=== PATIENT | male | born 1985 | race Caucasian/White ===

== ENCOUNTER 2024-08-07 21:55 | Inpatient (IN) | payer MEDICAID, OTHER, SELFPAY ==
--- NOTE | 2024-08-07 | ECG_ITS ---
Test Reason : SUBSTANCE ABUSE Blood Pressure : / mmHG Vent. Rate : 073 BPM Atrial Rate : 073 BPM P-R Int : 156 ms QRS Dur : 090 ms QT Int : 422 ms P-R-T Axes : 048 042 012 degrees QTc Int : 464 ms Normal sinus rhythm Minimal voltage criteria for LVH, may be normal variant ( Sokolow-Navarrete ) Nonspecific T wave abnormality Prolonged QT Abnormal ECG When compared with ECG of 08-MAY-2020 14:20, T wave inversion now evident in Inferior leads Nonspecific T wave abnormality now evident in Anterolateral leads QT has lengthened Referred By: Generic ED Physician Electronically Signed By:PEDRITO CONNOR MD
--- NOTE | ~2024-08-07 | CT_ITS ---
EXAMINATION: CT HEAD WITHOUT CONTRAST CT CERVICAL SPINE WITHOUT CONTRAST CLINICAL INFORMATION: Fall. COMPARISON: CT head and cervical spine from 05/22/2020. TECHNIQUE: Contiguous axial imaging was performed from the skull base to vertex without intravenous administration of contrast. Contiguous axial imaging was performed from the upper chest through the skull base without intravenous administration of contrast. Coronal and sagittal reformats were obtained at the acquisition workstation. This CT examination was performed using dose optimization techniques as appropriate, variously including the following: *Automated exposure control. *Adjustment of mA and/or kV according to patient size (this includes techniques or standardized protocols for targeted exams where dose is matched to indication/reason for exam; i.e. extremities or head). *Use of iterative reconstruction technique. DLP: 1173 mGy-cm FINDINGS: Head: There is no evidence of acute intracranial hemorrhage or edematous territorial infarction. Hobbs-white matter differentiation is preserved. Nonspecific scattered and partially confluent hypoattenuation in the periventricular and deep white matter. The ventricles are normal in morphology and size. No evidence for obstructive hydrocephalus. No abnormal mass effect or midline shift. No extra-axial fluid collections. No acute soft tissue or osseous abnormalities. The mastoid air cells and visualized paranasal sinuses are clear. Cervical Spine: The atlantooccipital and atlantoaxial articulations remain well aligned. Straightening of the normal cervical lordosis. Otherwise, there is anatomic alignment of the vertebral bodies and posterior elements. No evidence of acute fracture or subluxation. The vertebral body heights and disc spaces are maintained. There is no prevertebral soft tissue swelling. The thyroid gland and remaining cervical soft tissues are within normal limits. The lung apices demonstrate no abnormalities. CT/CT cervical spine wo IV con IMPRESSION: 1. No evidence of acute intracranial hemorrhage or edematous territorial infarction. 2. Mild to moderate nonspecific white matter changes. 3. No evidence of acute fracture or traumatic subluxation of the cervical spine. Electronically signed by: Zana De Leon DO 08/08/2024 12:25 AM EDT
[2024-08-07 22:16] VITALS: BP 121/64; BP 124/72; PULSE 81; PULSE 84; RESP 16; TEMP 37.3; O2SAT 96; O2SAT 99; BMI 21.0
--- NOTE | 2024-08-07 22:33 | PC.NURSE ---
MD Albarran made aware of possible headstrike/loc. no lacs/redness/hematoma noted of head. pt reports mild headache. head/neck ct scan entered per MD. pt states depressed/has thought of SI without plan, agreeable to see care team. labs urine ekg ordered. pt changed over to hospital attire belongings locked. crack pipe found by security on pt and discarded. pt is calm/cooperative. charge nurse aware need for 1:[address] scan at this time.
--- OUTSIDE RECORDS SUMMARY | 2024-08-07 22:41 | XMS_ITS | Continuity of Care Document ---
Author Organization [facility] Address [address] [place] [address]- Care Team Providers Care Packaging Tech Name Role Phone Amor PAREDES, Shin Johnston Primary Care Physician Encounter [facility] Date(s): 05/16/20 - 05/18/20 [facility] [address] [place] [address]- [facility] Discharge Disposition: A-D/C Home Attending Physician: Raina Tapia MD Admitting Physician: Avril Faulkner MD Referring Physician: Not on Staff, Referring MD Allergies, Adverse Reactions, Alerts Substance Reaction Severity Status NKA Active Medications No Known Medications Problem List Condition Effective Dates Status Health Status Inform ant Anxiety(Confirmed) Active Depression(Confirmed) Active Hepatitis C(Confirmed) Active Polysubstance abuse(Confirmed) Active PTSD - Post-traumatic stress disorder(Confirmed) Active Vital Signs Most recent to oldest [Reference Range]: 1 2 3 Height 165.1 cm (05/18/20 8:22 AM) 165.1 cm (05/17/20 9:54 PM) 165.1 cm (05/17/20 9:30 AM) Weight 60.9 kg (05/16/20 1:13 AM) Oxygen Saturation [94-100 %] 100 % (05/18/20 8:22 AM) 100 % (05/17/20 9:54 PM) 100 % (05/16/20 9:40 PM) Pulse Rate [55-90 bpm] 102 bpm *H* (05/18/20 8:22 AM) 118 bpm *H* (05/17/20 9:54 PM) 71 bpm (05/17/20 9:30 AM) Body Mass Index [18.5-24.99] 22.34 (05/16/20 1:13 AM) Blood Pressure [90-138/55-84 mm Hg] 108/74mm Hg (05/18/20 8:22 AM) 88/52mm Hg *L* (05/17/20 9:54 PM) 123/72mm Hg (05/17/20 9:30 AM) Respiratory Rate [16-30 br/min] 18 br/min (05/18/20 9:25 AM) 18 br/min (05/18/20 8:29 AM) 18 br/min (05/18/20 8:24 AM) Temperature [96.8-100.4 DegF] 98.4 DegF (05/18/20 8:22 AM) 97.9 DegF (05/17/20 9:54 PM) 97 DegF (05/17/20 9:30 AM) Mode of Delivery (Oxygen) Room air (05/18/20 8:22 AM) Room air (05/17/20 9:54 PM) Room air (05/16/20 9:40 PM) Blood pressure sites Arm, left (05/18/20 8:22 AM) Arm, left (05/17/20 9:54 PM) Arm, right (05/17/20 9:30 AM) Temperature Route Oral (05/18/20 8:22 AM) Oral (05/17/20 9:54 PM) Oral (05/17/20 9:30 AM) Dry Weight 60.9 kg (05/16/20 1:13 AM) Sensory deficits None (05/16/20 1:13 AM) Mobility assistance Independent (05/16/20 1:13 AM)
--- OUTSIDE RECORDS SUMMARY | 2024-08-07 22:41 | XMS_ITS | Continuity of Care Document ---
Author Organization [facility] Address [address] [place] [address]- Care Team Providers Care Typesetting Supervisor Name Role Phone Amor PAREDES, Shin Johnston Primary Care Physician Encounter [facility] Date(s): 11/29/19 - 11/30/[address] [address] [phone] Discharge Disposition: A-D/C Home Attending Physician: Mihai Romero MD Admitting Physician: Mihai Romero MD Referring Physician: Not on Staff, Referring MD Allergies, Adverse Reactions, Alerts Substance Reaction Severity Status NKA Active Medications Bactrim DS 800 mg-160 mg oral tablet 1 tablet, By Mouth, Every 12 hours, for 10 days, # 20 tablet, 0 Refills, Acute 12/10/19 0:28:00 EST, 11/30/19 0:28:00 EST, Tablet, [id number], 1 tablet By Mouth Every 12 hours,x10 days, 165, cm, 11/29/19 21:38:00 EST, Height, 68.1, kg,... Start Date: 11/30/19 Stop Date: 12/10/19 Status: Ordered Bactrim DS 800 mg-160 mg oral tablet 1 tablet, By Mouth, 2 times a day, for 7 days, # 14 tablet, 0 Refills, Acute 12/07/19 9:20:00 EST, 11/30/19 9:20:00 EST, Tablet, [facility]/pharmacy #[id number], 1 tablet By Mouth 2 times a day,x7 days, 165, cm, 11/29/19 21:38:00 EST, Height, 68.1, kg, 11/29/19 21... Start Date: 11/30/19 Stop Date: 12/07/19 Status: Ordered cephalexin monohydrate 500 mg oral tablet 1 tablet = 500 mg, By Mouth, 4 times a day, for 7 days, # 28 tablet, 0 Refills, Acute 12/07/19 9:20:00 EST, 11/30/19 9:20:00 EST, Tablet, [facility]/pharmacy #[id number], 165, cm, 11/29/19 21:38:00 EST, Height, 68.1, kg, 11/29/19 21:38:00 EST, Dry Weight Start Date: 11/30/19 Stop Date: 12/07/19 Status: Ordered Depakote ER 500 mg oral tablet, extended release 1 tablet = 500 mg, By Mouth, 2 times a day, 0 Refills, Maintenance, 11/29/19 21:42:00 EST Start Date: 11/29/19 Status: Ordered gabapentin 300 mg oral capsule 300 mg, 1, capsule, By Mouth, 2 times a day, Refills 0, Maintenance, 11/29/19 21:41:00 EST Start Date: 11/29/19 Status: Ordered Keflex monohydrate 500 mg oral capsule 1 capsule = 500 mg, By Mouth, 4 times a day, for 10 days, # 40 capsule, 0 Refills, Acute 12/10/19 0:27:00 EST, 11/30/19 0:27:00 EST, Capsule, [id number], 165, cm, 11/29/19 21:38:00 EST, Height, 68.1, kg, 11/29/19 21:38:00 EST, Dry Weight Start Date: 11/30/19 Stop Date: 12/10/19 Status: Ordered Methadone = 80 mg, By Mouth, Daily, 0 Refills, Maintenance, 11/29/19 21:42:00 EST, Partial fill upon patient request Start Date: 11/29/19 Status: Ordered mirtazapine 15 mg oral tablet 1 tablet, By Mouth, Daily at bedtime, # 30 tablet, 0 Refills, Maintenance, 07/14/14 14:10:11, Tablet, 1 tablet By Mouth Daily at bedtime,x30 days Start Date: 07/14/14 Stop Date: 08/13/14 Status: Ordered quetiapine 50 mg oral tablet = 50 mg, By Mouth, Daily at bedtime, # 30 tablet, 0 Refills, Maintenance, 07/14/14 14:07:43, Tablet, 50 mg By Mouth Daily at bedtime,x30 days Start Date: 07/14/14 Stop Date: 08/13/14 Status: Ordered Vital Signs Most recent to oldest [Reference Range]: 1 2 Height 165 cm (11/29/19 9:38 PM) Weight 68.1 kg (11/29/19 9:38 PM) Oxygen Saturation [94-100 %] 98 % (11/30/19 12:35 AM) 98 % (11/29/19 9:38 PM) Pulse Rate [55-90 bpm] 72 bpm (11/30/19 12:35 AM) 80 bpm (11/29/19 9:38 PM) Blood Pressure [90-138/55-84 mm Hg] 96/6 4mm Hg (11/30/19 12:35 AM) 105/69mm Hg (11/29/19 9:38 PM) Respiratory Rate [16-30 br/min] 18 br/mi n (11/30/19 12:35 AM) 20 br/min (11/29/19 9:38 PM) Temperature [96.8-100.4 DegF] 97.7 DegF (11/30/19 12:35 AM) 97.6 DegF (11/29/19 9:38 PM) Mode of Delivery (Oxygen) Room air (11/30/19 12:35 AM) Room air (11/29/19 9:38 PM) Blood pressure sites Arm, right (11/29/19 9:38 PM) Temperature Route Oral (11/30/19 12:35 AM) Oral (11/29/19 9:38 PM) Dry Weight 68.1 kg (11/29/19 9:38 PM) Dry Weight Obtained Via Patient/family s tated (11/29/19 9:38 PM)
--- OUTSIDE RECORDS SUMMARY | 2024-08-07 22:41 | XMS_ITS | Continuity of Care Document ---
Author Organization [facility] ter Address [address] [place] [address]- Care Team Providers Care Accredited Pharmacy Technician Name Role Phone Amor PAREDES, Shin Johnston Primary Care Physician Encounter [facility] Date(s): 02/11/20 - 02/12/[address] [address]- [facility] Encounter Diagnosis Nasal bone fracture(Final) - 02/12/20 Discharge Disposition: A-D/C Home Attending Physician: Ji Helms MD Admitting Physician: Ji Helms MD Referring Physician: Not on Staff, Referring MD Allergies, Adverse Reactions, Alerts Substance Reaction Severity Status NKA Active Medications acetaminophen 325 mg oral tablet 650 mg, 2, tablet, By Mouth, Every 6 hours, PRN, # 50 tablet, Refills 0, Tot. Refills 0, Maintenance, as needed for pain, 02/12/20 9:56:00 EDT, Route to Pharmacy Electronically, [facility]/pharmacy #[id number], 165, cm, 11/29/19 21:38:00 EST, Height, 68.1, kg, ... Start Date: 02/12/20 Status: Ordered Depakote ER 500 mg oral tablet, extended release 1 tablet = 500 mg, By Mouth, 2 times a day, 0 Refills, Maintenance, 11/29/19 21:42:00 EST Start Date: 11/29/19 Status: Ordered gabapentin 300 mg oral capsule 300 mg, 1, capsule, By Mouth, 2 times a day, Refills 0, Maintenance, 11/29/19 21:41:00 EST Start Date: 11/29/19 Status: Ordered ibuprofen 400 mg oral tablet 400 mg, 1, tablet, By Mouth, Every 6 hours, PRN, # 50 tablet, Refills 0, Tot. Refills 0, Maintenance, as needed for pain, 02/12/20 9:56:00 EDT, Route to Pharmacy Electronically, [facility]/pharmacy #[id number], 165, cm, 11/29/19 21:38:00 EST, Height, 68.1, kg, ... Start Date: 02/12/20 Status: Ordered Methadone = 80 mg, By [...] to oldest [Reference Range]: 1 2 3 Oxygen Saturation [94-100 %] 98 % (02/12/20 10:28 AM) 100 % (02/12/20 5:59 AM) 96 % (02/11/20 10:59 PM) Pulse Rate [55-90 bpm] 71 bpm (02/12/20 10:28 AM) 58 bpm (02/12/20 5:59 AM) 70 bpm (02/11/20 10:59 PM) Blood Pressure [90-138/55-84 mm Hg] 102/60mm Hg (02/12/20 10:28 AM) 97/55mm Hg (02/12/20 5:59 AM) 114/65mm Hg (02/11/20 10:59 PM) Respiratory Rate [16-30 br/min] 18 br/min (02/12/20 10:28 AM) 18 br/min (02/12/20 9:17 AM) 18 br/min (02/12/20 5:59 AM) Temperature [96.8-100.4 DegF] 98.0 DegF (02/12/20 10:28 AM) 97.3 DegF (02/12/20 5:59 AM) 97.9 DegF (02/11/20 10:59 PM) Liters per Minute 0 L/min (02/12/20 5:59 AM) Mode of Delivery (Oxygen) Room air (02/12/20 10:28 AM) Room air (02/12/20 5:59 AM) Room air (02/11/20 10:59 PM) Blood pressure sites Arm, right (02/12/20 10:28 AM) Arm, left (02/12/20 5:59 AM) Temperature Route Oral (02/12/20 10:28 AM) Oral (02/12/20 5:59 AM) Oral (02/11/20 10:59 PM)
--- OUTSIDE RECORDS SUMMARY | 2024-08-07 22:41 | XMS_ITS | Continuity of Care Document ---
Author Organization [facility] ter Address [address] [place] [address]- Care Team Providers Care Appraisal Coordinator Name Role Phone Amor PAREDES, Shin Johnston Primary Care Physician Encounter [facility] [place] Date(s): 10/06/21 - 10/06/[address] [address] Discharge Disposition: A-D/C Home Attending Physician: Ralph Nava DDS, MD Admitting Physician: Ralph Nava DDS, MD Referring Physician: Ralph Nava DDS, MD Allergies, Adverse Reactions, Alerts Substance Reaction Severity Status NKA Active Medications acetaminophen-oxycodone 325 mg-10 mg oral tablet 1 tablet, By Mouth, Every 6 hours, PRN Pain , Mild, for 3 days, if patient can tolerate po, # 12 tablet, 0 Refills, Acute 10/09/21 17:20:00 EST, 10/06/21 17:20:00 EST, Tablet, Partial fill upon patient request if the prescription is for a schedule II... Start Date: 10/06/21 Stop Date: 10/09/21 Status: Ordered Bactrim DS 800 mg-160 mg oral tablet 1 tablet, By Mouth, 2 times a day, # 14 tablet, 0 Refills, Maintenance, 10/06/21 15:11:00 EST, Tablet, Partial fill upon patient request if the prescription is for a schedule II opioid drug. Start Date: 10/06/21 Stop Date: 10/13/21 Status: Ordered benztropine 1 mg oral tablet 1 mg, 1, tablet, By Mouth, Daily at bedtime, Refills 0, Maintenance, 10/01/21 16:41:00 EST, Partialfill upon patient request if the prescription is for a schedule II opioid drug. Start Date: 10/01/21 Status: Ordered buPROPion 75 mg oral tablet 1 tablet = 75 mg, By Mouth, 2 times a day, # 270 tablet, 0 Refills, Maintenance, 10/01/21 16:42:00 EST, Tablet, Partial fill upon patient request if the prescription is for a schedule II opioid drug. Start Date: 10/01/21 Status: Ordered chlorhexidine topical 0.12% liquid 15 mL = 0.018 Gm, Swish and Spit, 3 times a day after meals and bedtime, # 420 mL, 1 Refills, Maintenance, 10/06/21 17:20:00 EST, Oral Rinse, [facility]/pharmacy #[id number], Partial fill upon patient request if the prescription is for a schedule II opioid drug.,... Start Date: 10/06/21 Stop Date: 10/20/21 Status: Ordered haloperidol 2 mg oral tablet 2 mg, 1, tablet, By Mouth, Daily in AM, Refills 0, Maintenance, 10/01/21 16:42:00 EST, Partial fillupon patient request if the prescription is for a schedule II opioid drug. Start Date: 10/01/21 Status: Ordered haloperidol 5 mg oral tablet 5 mg, 1, tablet, By Mouth, Daily at bedtime, Refills 0, Maintenance, 10/01/21 16:43:00 EST, Partialfill upon patient request if the prescription is for a schedule II opioid drug. Start Date: 10/01/21 Status: Ordered hydrOXYzine hydrochloride 25 mg oral tablet 1 tablet = 25 mg, By Mouth, Daily in AM, 0 Refills, Maintenance, 10/01/21 16:43:00 EST, Partial fill upon patient request if the prescription is for a schedule II opioid drug. Start Date: 10/01/21 Status: Ordered hydrOXYzine hydrochloride 25 mg oral tablet 3 tablets, By Mouth, Daily at bedtime, 0 Refills, Maintenance, 10/01/21 16:43:00 EST, Partial fill upon patient request if the prescription is for a schedule II opioid drug. Start Date: 10/01/21 Status: Ordered ibuprofen 800 mg oral tablet 800 mg, 1, tablet, By Mouth, 3 times a day, PRN, for 5 days, # 15 tablet, Refills 1, Tot. Refills 1, Acute 10/16/21 17:19:00 EST, for pain, 10/06/21 17:19:00 EST, Route to Pharmacy Electronically, [facility]/pharmacy #[id number], Partial fill upon patient request... Start Date: 10/06/21 Stop Date: 10/16/21 Status: Ordered Methadone Liquid = 85 mg, By Mouth, Daily in AM, 0 Refills, Maintenance, 10/01/21 16:44:00 EST, Solution, Partial fill upon patient request if the prescription is for a schedule II opioid drug. Start Date: 10/01/21 Status: Ordered Narcan 4 mg/0.1 mL nasal spray = 4 mg, Naris, Left, Once, 0 Refills, Maintenance, 10/01/21 16:47:00 EST, Partial fill upon patientrequest if the prescription is for a schedule II opioid drug. Start Date: 10/01/21 Status: Ordered Tylenol Caplet Extra Strength = 500 mg, By Mouth, Every 6 hours, PRN Pain , Moderate, 0 Refills, Maintenance, 10/01/21 16:45:00 EST, Partial fill upon patient request if the prescription is for a schedule II opioid drug. Start Date: 10/01/21 Status: Ordered Problem List Condition Effective Dates Status Health Status Inform ant Anxiety(Confirmed) Active Depression(Confirmed) Active Hepatitis C(Confirmed) Active Polysubstance abuse(Confirmed) Active PTSD - Post-traumatic stress disorder(Confirmed) Active Vital Signs Most recent to oldest [Reference Range]: 1 2 3 Height 167.64 cm (10/06/21 2:47 PM) 167.64 cm (10/01/21 4:39 PM) Weight 72.27 kg (10/06/21 2:47 PM) 72.27 kg (10/01/21 4:39 PM) Oxygen Saturation [94-100 %] 97 % (10/06/21 6:34 PM) 97 % (10/06/21 6:30 PM) 96 % (10/06/21 6:19 PM) Pulse Rate [55-90 bpm] 85 bpm (10/06/21 2:47 PM) Body Mass Index [18.5-24.99] 25.72 *H* (10/06/21 2:47 PM) 25.72 *H* (10/01/21 4:39 PM) Blood Pressure [90-138/55-84 mm Hg] 123/81mm Hg (10/06/21 6:34 PM) 111/77mm Hg (10/06/21 6:19 PM) 112/66mm Hg (10/06/21 6:07 PM) Respiratory Rate [16-30 br/min] 15 br/min *L* (10/06/21 6:34 PM) 15 br/min *L* (10/06/21 6:30 PM) 15 br/min *L* (10/06/21 6:19 PM) Temperature [96.8-100.4 DegF] 97.2 DegF (10/06/21 6:30 PM) 98 DegF (10/06/21 5:15 PM) 98.8 DegF (10/06/21 2:47 PM) Liters per Minute 5 L/min (10/06/21 5:30 PM) 7 L/min (10/06/21 5:15 PM) Mode of Delivery (Oxygen) Room air (10/06/21 7:30 PM) Room air (10/06/21 6:30 PM) Room air (10/06/21 6:15 PM) Blood pressure sites Arm, left (10/06/21 5:15 PM) Arm, right (10/06/21 2:47 PM) Temperature Route Temporal (10/06/21 6:30 PM) Temporal (10/06/21 5:15 PM) Temporal (10/06/21 2:47 PM) Dry Weight 70.1 kg (10/06/21 2:47 PM) 72.27 kg (10/01/21 4:39 PM) Weight Obtained Via Patient/family state d (10/01/21 4:39 PM) Dry Weight Obtained Via Standing scale (10/06/21 2:47 PM) Patient/family stated (10/01/21 4:39 PM)
[2024-08-07 23:04] LABS: Basophils Percent Auto 0.4 % (0-2); Eosinophils Absolute Auto 0.2 X10*3/uL (0.0-0.4); Eosinophils Percent Auto 1.9 % (0-4); Hematocrit 32.6 % (42.0-52.0); Hemoglobin 11.3 g/dl (14.0-18.0); Imm Gran Abs Auto 0.01 X10*3/uL (0.00-0.03); Imm Gran Pct Auto 0.1 % (0.0-0.4); Lymphocytes Absolute Auto 2.1 X10*3/uL (1.2-4.9); Lymphocytes Percent Auto 26.9 % (20-40); MANUAL DIFF FLAG NO; Mean Corpuscular HGB Conc 34.7 g/dl (31.0-36.0); Mean Corpuscular Hemoglobin 28.9 pg (27.0-33.0); Mean Corpuscular Volume 83.4 fL (80.0-98.0); Mean Platelet Volume 9.9 fL (9.4-12.4); Monocytes Absolute Auto 0.7 X10*3/uL (0.1-1.2); Monocytes Percent Auto 8.4 % (2-11); Neutrophils Percent Auto 62.3 % (45-73); Platelet Count 212 X10*3/uL (160-400); Red Blood Count 3.91 X10*6/uL (4.60-5.80); Red Cell Distribution Width 13.2 % (11.0-16.0)
--- NOTE | 2024-08-07 23:06 | ED_ITS ---
HPI - Fall General Chief Complaint: Fall Stated Complaint: fell Head strike, LOC +c collar Time Seen by Provider: 08/07/24 22:59 Source: patient and EMS Mode of arrival: EMS Limitations: no limitations History of Present Illness ED Provider: Dr. Dee Moran HPI Narrative: Patient comes to the emergency room via ambulance. Patient was found in a bag [place] [address], slumped over. Patient states that he fell over and hit his head, patient believes he did lose consciousness. Patient admits that he has been drinking multiple nips per day. Patient states that he has been very depressed, no HI. Patient states that he also injects IV drugs especially in the neck area. Patient states that he has seriously been considering killing himself, a specific plan, patient states he has had this thoughts in the past. Related Data Allergies Allergy/AdvReac Type Severity Reaction Status Date / Time No Known Allergies Allergy Verified 08/07/24 22:18 [No Known Allergies*] Review of Systems 2 Review of Systems: Constitutional : No Weight loss, No Fever, No Chills, No Night Sweats, No Fatigue, No Malaise ENT/Mouth : No Hearing loss, No Ear Pain, No Nasal Congestion, No Sinus Pain, No Hoarseness, No sore throat, No Rhinorrhea, No Swallowing Difficulty Eyes: No Eye Pain, No Swelling, No Redness, No Foreign Body, No Discharge, No Vision Changes Cardiovascular : No Chest Pain, No SOB, No Dyspnea on Exertion, No Orthopnea, No Edema, No Palpitations Respiratory : No Cough, No Sputum, No Wheezing, No Smoke Exposure, No Dyspnea Gastrointestinal : No Nausea, No Vomiting, No Diarrhea, No Constipation, No abdominal Pain, No Hematochezia, No Melena Genitourinary : no irregular bleeding, No Dysuria, No Urinary Frequency, No Hematuria, No Urinary Incontinence, No Urgency, No Flank Pain, No Urinary Flow Changes, No Hesitancy Musculoskeletal : No joint pain, No Myalgias, No Joint Swelling Skin : No Skin Lesions, No rash Neuro : No Weakness, No Numbness, No Paresthesias, No Loss of Consciousness, No Dizziness, No Headache Psych : Complaining of depression, suicidal thoughts, no HI, admits to polysubstance abuse Heme/Lymph: No Bruising, No Bleeding,No Lymphadenopathy Endocrine : No Polyuria, No Polydipsia, No Temperature Intolerance PMFSH Past Medical History Medical History Polysubstance abuse Anxiety and depression Social History Social History Advance Directives: No Advance Directives Information Provided: No Physical Exam 2 Vital Signs: Vital Signs: Last Vital Signs Temp 98.1 F 08/08/24 00:14 Pulse 60 08/08/24 00:14 Resp 18 08/08/24 00:14 BP 103/54 L 08/08/24 00:14 Pulse Ox 99 08/08/24 00:14 O2 Del Method Room Air 08/08/24 00:14 BMI result Body Mass Index 21.0 Const: Other: Appearance: Alert. Somnolent but easily arousable, seems under the influence of drugs Eyes: Pupils equal, round and reactive to light. ENT: Pharynx normal. Neck: Normal inspection. Neck supple. No lymph nodes noted. No crepitus CVS: Normal heart rate and rhythm. Pulses normal. Normal S1 and S2 Respiratory: No respiratory distress. Breath sounds normal. No Wheezing. No rales Abdomen: Soft and nontender. No rigidity. No distention. Skin: Skin warm and dry. Normal skin color. Normal skin turgor. Extremities: No lower extremity edema. No Lacerations. No Rash Neuro: Oriented X 3. No motor deficit. No sensory deficit. Moving all extremities. No slurred speech. CN 2 through 12 grossly intact Psych: calm, cooperative, somnolent but tries to stay away can answer questions Course Course Course Narrative: All of patient's labs and imaging pending Medical Decision Making Medical Decision Making [facility] Narrative: My interpretation of labs, hematology at baseline, chemistry shows a potassium of 3.2, troponin negative my ETOH negative -patient has not provided urine sample -CT scan of head and neck no obvious abnormality -patient is a Section 12 -care team consult pending Differential Diagnosis Differential Diagnoses: The differential diagnosis associated with the presentation includes (Accidental overdose, polysubstance abuse, fall) Admission/Observation Consideration of admission/observation: Escalation of care including admission/observation considered (Patient is under physician observation waiting to be seen by the care team, patient on a Section 12) Lab Data [facility] Lab Attestation statement: I reviewed the patient's lab results. 08/07/24 22:58 10/09/24 22:58 Labs: Lab Results 08/07/24 Range/Units 22:58 WBC 8.0 (4.8-10.8) X10*3/uL RBC 3.91 L (4.60-5.80) X10*6/uL Hgb 11.3 L (14.0-18.0) g/dl Hct 32.6 L (42.0-52.0) % MCV 83.4 (80.0-98.0) fL MCH 28.9 (27.0-33.0) pg MCHC 34.7 (31.0-36.0) g/dl RDW 13.2 (11.0-16.0) % Plt Count 212 (160-400) X10*3/uL MPV 9.9 (9.4-12.4) fL Immature Gran % (Auto) 0.1 (0.0-0.4) % Neut % (Auto) 62.3 (45-73) % Lymph % (Auto) 26.9 (20-40) % Sioux % (Auto) 8.4 (2-11) % Eos % (Auto) 1.9 (0-4) % Baso % (Auto) 0.4 (0-2) % Lymph # (Auto) 2.1 (1.2-4.9) X10*3/uL Sioux # (Auto) 0.7 (0.1-1.2) X10*3/uL Eos # (Auto) 0.2 (0.0-0.4) X10*3/uL Baso # (Auto) 0.0 (0.0-0.2) X10*3/uL Abs Immat Gran (auto) 0.01 (0.00-0.03) X10*3/uL Absolute Neuts (auto) 5.0 (2.0-8.3) x10*3/uL Absolute Nucleated RBC 0.000 (0.0-0.012) X10*3/uL Nucleated RBC % (auto) 0.0 (0.0-0.2) /100WBC Sodium 140 (135-145) mmol/L Potassium 3.2 L (3.3-5.1) mmol/L Chloride 103 (96-108) mmol/L Carbon Dioxide 29 (22-29) mmol/L Anion Gap 11 L (12-20) BUN 9 (9-16) mg/dL Creatinine 0.76 (0.5-1.4) mg/dL Estim Creat Clear Calc 109.9 Estimated GFR > 60 Random Glucose 123 H (60-115) mg/dL Calcium 8.7 (8.4-10.2) mg/dL Total Bilirubin 0.7 (0.0-1.0) mg/dL AST 47 H (5-37) U/L ALT 39 (0-40) U/L Alkaline Phosphatase 55 (39-117) U/L Troponin I High Sens < 2.7 (<3.5-35.0) ng/L Total Protein 7.0 (6.5-8.0) g/dL Albumin 3.8 (3.5-5.0) g/dL Ethyl Alcohol < 10 mg/dL Independent Interpretation I performed an independent interpretation of an: CT Scan Radiology Impression Discussion of test interpretation with radiology: I have reviewed the radiologist's reading. Radiologist Impression: Head: There is no evidence of acute intracranial hemorrhage or edematous territorial infarction. Hobbs-white matter differentiation is preserved. Nonspecific scattered and partially confluent hypoattenuation in the periventricular and deep white matter. The ventricles are normal in morphology and size. No evidence for obstructive hydrocephalus. No abnormal mass effect or midline shift. No extra-axial fluid collections. No acute soft tissue or osseous abnormalities. The mastoid air cells and visualized paranasal sinuses are clear. Cervical Spine: The atlantooccipital and atlantoaxial articulations remain well aligned. Straightening of the normal cervical lordosis. Otherwise, there is anatomic alignment of the vertebral bodies and posterior elements. No evidence of acute fracture or subluxation. The vertebral body heights and disc spaces are maintained. There is no prevertebral soft tissue swelling. The thyroid gland and remaining cervical soft tissues are within normal limits. The lung apices demonstrate no abnormalities. CT/CT head/brain wo IV con IMPRESSION: 1. No evidence of acute intracranial hemorrhage or edematous territorial infarction. 2. Mild to moderate nonspecific white matter changes. 3. No evidence of acute fracture or traumatic subluxation of the cervical spine. Independent Historian Clinical information obtained from an independent historian. History obtained from or confirmed by: EMS Critical Care Time Critical Care Time Critical Care Time: Yes Total Critical Care Time: 45 Attestation: I have personally provided critical care time. Time includes review of lab data, radiology results, discussion with consultants, and monitoring for potential decompensation. Intervention performed as documented. Discharge Plan Discharge Clinical Impression: Polysubstance abuse, Suicidal ideation Patient Disposition: Still a Patient Print Language: American
[2024-08-07 23:18] LABS: Alanine Aminotransferase 39 U/L (0-40); Albumin Level 3.8 g/dL (3.5-5.0); Alkaline Phosphatase 55 U/L (39-117); Anion Gap 11 (12-20); Aspartate Amino Transferase 47 U/L (5-37); Bilirubin Total 0.7 mg/dL (0.0-1.0); Blood Urea Nitrogen 9 mg/dL (9-16); Calcium 8.7 mg/dL (8.4-10.2); Carbon Dioxide 29 mmol/L (22-29); Chloride 103 mmol/L (96-108); Creatinine Clr Calc Pharmacy 109.9; Estimated Glomerular Filt Rate > 60; Ethanol < 10 mg/dL; Glucose Random 123 mg/dL (60-115); Potassium 3.2 mmol/L (3.3-5.1); Sodium 140 mmol/L (135-145)
[2024-08-07 23:26] LABS: Troponin-I High Sensitivity < 2.7 ng/L (<3.5-35.0)
[2024-08-08 00:14] VITALS: BP 103/54; PULSE 60; RESP 18; TEMP 36.7; O2SAT 99
[2024-08-08 06:18] VITALS: RESP 16
--- NOTE | 2024-08-08 06:59 | HE.PHANOTE ---
RE: methadone last dose 105mg at [facility] 08/07/24 @0717
--- NOTE | 2024-08-08 07:49 | PC.NURSE ---
Assumed care of patient at 0645, patient appears to be sleeping, respirations even and unlabored, no apparent distress noted at this time. Pending urine sample then CARE team eval today
[2024-08-08] MEDS: methADONE HCl 20 MG/2 ML ORAL.CONC 105 MG PO (09:14)
--- NOTE | 2024-08-08 11:46 | PC.NURSE ---
Pt continues to state he cannot provide urine sample at this time
[2024-08-08] MEDS: Potassium Chloride ER 20 MEQ TAB.ER.PRT 40 MEQ PO (13:26)
--- NOTE | 2024-08-08 14:46 | PHA.MEDREC ---
Addendum entered by Matthew Kunz 08/08/24 14:48: reviewed Original Note: Pharmacy Consult ? Medication Reconciliation Pharmacy has reviewed the medication reconciliation done by nursing. Patient only takes methadone 105 mg from [facility] last dose 08/07/24.
[2024-08-08 18:29] VITALS: RESP 16
[2024-08-08 19:39] VITALS: BP 113/84; PULSE 66; RESP 16; TEMP 36.9; O2SAT 99
--- NOTE | 2024-08-08 19:40 | PC.NURSE ---
Pt brought pt to the unit at 1855 from the ED pod. Pts VSS, skin check completed. Pt has large open abrasion on right knee. Area is approx. 2 inches round , bleeding fresh red blood. Area cleansed and dry gauze applied. Oncoming nurse informed. Pt also has multiple blisters between toes. Noted 2 cm x 1 cm blister between right great toe and second toe.
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
[2024-08-09 08:00] VITALS: BP 112/67; PULSE 68; RESP 16; TEMP 36.9; O2SAT 99
[2024-08-09] MEDS: methADONE HCl 20 MG/2 ML ORAL.CONC 105 MG PO (08:14)
--- NOTE | 2024-08-09 11:06 | HO.PSYADMNOT ---
HPI Date of Service: 08/09/24 Chief Complaint: fell Head strike, LOC +c collar Sources of Information: patient interviewed, chart reviewed and crisis/core team assessment reviewed HPI Subjective Notes: Esquivel Warning and Conditional Voluntary Narrative: Patient is a 38-year-old male with history of MDD, PTSD, opiate use disorder and cocaine use disorder who was brought in to the ER after being found slumped over on the street and reported suicidal ideation with plan to intentionally overdose. Per crisis report, patient was brought in by ambulance after being found at [employer] slumped over. When arrived at ER patient reported alcohol use, IV cocaine use and suicidal ideation with no plan. Patient reports he was released from [facility] in May. He denies currently being on probation. He reports not following up with providers upon release. Patient has history of several psychiatric admissions for suicidal ideation. Patient reported feelings of hopelessness and has been having thoughts of intentionally overdosing. Patient denies HI/AH/VH. During admission assessment, patient presents alert and oriented x3. calm and cooperative. Patient reports feeling anxious and depressed; patient stated, I was feeling depressed and anxious. I don't know why I was thinking of hurting myself but I did not have a plan. I wasn't at [employer]. I was at [employer] and I called the ambulance because I was feeling dizzy. I knew I was going to pass out . Patient reports he has been using a gram of cocaine daily along with a bundle of IV heroin. He also reports smoking marijuana. Denies any other substance use. Patient reports his longest sobriety was for a few months when at the [facility] in [place]. Patient reports he would like help getting sober. Patient stated, I need to get back on my meds and see a therapist. I want to try to go to a drug program to get clean . Patient reports history of multiple detox admissions; reporting last admission being 2 years ago. Patient is unable to recall names of facilities. Patient reports he is currently not taking any psychiatric medication and he does not have outpatient providers. He reports taking medications while incarcerated; Seroquel, mirtazapine, Haldol, gabapentin, Depakote, bupropion, clonidine. Past Psychiatric History: Inpatient: [facility] [place]), [place] 2019, [facility] 2014 History of multiple detox admissions. Denies current outpatient psychiatric providers. Medication history: Seroquel, mirtazapine, Haldol, gabapentin, Depakote, bupropion, clonidine. Patient unable to recall dosages. Patient receives methadone in [place] on [address] [facility]. Medical Evaluation Reviewed: Yes [facility] Medical History Polysubstance abuse Anxiety and depression Family History: Unknown Social History: Homeless, however he reports that he stays at his grandmother's at times. Single. No kids. Disability. GED. Substance History: Daily heroin and cocaine use. Occasional marijuana and alcohol use. History of multiple detox admissions. Trauma History: Yes Diagnostics Vital Signs (24Hr): Vital Signs - 24 hr 08/08/24 18:29 08/08/24 19:39 08/09/24 08:00 Temperature 98.4 F 98.4 F Pulse Rate 66 68 Respiratory Rate 16 16 16 Blood Pressure 113/84 112/67 Pulse Oximetry 99 99 Oxygen Delivery Method Room Air Room Air BMI result Body Mass Index 21.0 Labs 08/07/24 22:58 08/07/24 22:58 Labs: Laboratory Results - last 48 hr 08/07/24 22:58 WBC 8.0 RBC 3.91 L Hgb 11.3 L Hct 32.6 L MCV 83.4 MCH 28.9 MCHC 34.7 RDW 13.2 Plt Count 212 MPV 9.9 Immature Gran % (Auto) 0.1 Neut % (Auto) 62.3 Lymph % (Auto) 26.9 Woodruff % (Auto) 8.4 Eos % (Auto) 1.9 Baso % (Auto) 0.4 Lymph # (Auto) 2.1 Woodruff # (Auto) 0.7 Eos # (Auto) 0.2 Baso # (Auto) 0.0 Abs Immat Gran (auto) 0.01 Absolute Neuts (auto) 5.0 Absolute Nucleated RBC 0.000 Nucleated RBC % (auto) 0.0 Sodium 140 Potassium 3.2 L Chloride 103 Carbon Dioxide 29 Anion Gap 11 L BUN 9 Creatinine 0.76 Estim Creat Clear Calc 109.9 Estimated GFR > 60 Random Glucose 123 H Calcium 8.7 Total Bilirubin 0.7 AST 47 H ALT 39 Alkaline Phosphatase 55 Troponin I High Sens < 2.7 Total Protein 7.0 Albumin 3.8 Ethyl Alcohol < 10 Imaging Radiology Impressions: ITS Impressions Cervical Spine CT 08/07/24 22:40 IMPRESSION: 1. No evidence of acute intracranial hemorrhage or edematous territorial infarction. 2. Mild to moderate nonspecific white matter changes. 3. No evidence of acute fracture or traumatic subluxation of the cervical spine. Electronically signed by: Zana De Leon DO 08/08/2024 12:25 AM EDT RP Head CT 08/07/24 22:52 IMPRESSION: 1. No evidence of acute intracranial hemorrhage or edematous territorial infarction. 2. Mild to moderate nonspecific white matter changes. 3. No evidence of acute fracture or traumatic subluxation of the cervical spine. Electronically signed by: Zana De Leon DO 08/08/2024 12:25 AM EDT RP Meds/Allergies Meds Home Medications ?Medication ?Instructions ?Recorded ?Confirmed ?Type methadone 10 mg/mL oral 105 mg PO DAILY 08/08/24 08/08/24 History concentrate (Methadone Intensol) Allergies Allergies Allergy/AdvReac Type Severity Reaction Status Date / Time No Known Allergies Allergy Verified 08/07/24 22:18 [No Known Allergies*] Mental Status Exam Mental Status Exam Narrative: Pt is alert and oriented; behavior is cooperative and calm; dressed in casual attire; mood is described as anxious and depressed ; eye contact appropriate; Speech is normal rate, volume and not pressured; thought process is organized and goal directed; Thought content is on tx; otherwise pertinent to relevant topics and without any delusional content, paranoid ideations or grandiosity; denies HI/VH/AH. Patient reports suicidal ideation with plan to intentionally overdose. Assessment & Plan Assessment & Plan (1) MDD (major depressive disorder), recurrent episode: Status: Acute Code(s): F33.9 - Major depressive disorder, recurrent, unspecified (2) PTSD (post-traumatic stress disorder): Status: Acute Code(s): F43.10 - Post-traumatic stress disorder, unspecified (3) Opioid use disorder: Status: Acute Code(s): F11.90 - Opioid use, unspecified, uncomplicated (4) Cocaine use disorder: Status: Acute Code(s): F14.10 - Cocaine abuse, uncomplicated (5) Homelessness: Status: Acute Code(s): Z59.00 - Homelessness unspecified Plan Patient is a 38-year-old male with history of MDD, PTSD, opiate use disorder and cocaine use disorder who was brought in to the ER after being found slumped over on the street and reported suicidal ideation with plan to intentionally overdose. Plan: CV 15 minute safety checks Continue methadone Start: Mirtazapine 15 mg p.o. bedtime Clonidine 0.1 mg p.o. b.i.d. [place] protocol Encourage groups Referral to outpatient prescriber and therapist Referral to substance abuse program Discharge planning Patient educated on: diagnosis, medication risk/benefits and therapeutic strategies Informed Consent: understands Reason for continued inpatient stay Substantial Risk for: harm to self and med/psych decompensation Statement Statement: I have reviewed the history and physical and performed a pertinent examination on my patient. No changes have occurred unless specified. If the History and Physical was not performed prior to admission, the Hospitalist's service will be consulted for completing the admission physical. Time Spent With Patient Time: Total time managing care of this patient today _60___ minutes.
[2024-08-09] MEDS: hydrOXYzine HCL 25 MG TABLET PO (13:35)
--- NOTE | 2024-08-09 15:09 | MHC.CLN ---
NUTRITION CONSULT FOR UNKNOWN WEIGHT LOSS AND POOR APPETITE. NO WEIGHT HX VIEWED. BMI=21.0, NORMAL. PATIENT IS HOMELESS WITH ETOH AND POLYSUBSTANCE USE DISORDER. ANTICIPATE IMPROVED INTAKE IN STABLE ENVIRONMENT. ADDING ENSURE BID TO PROMOTE NUTRITIONAL INTAKE. SUPPLEMENT PROVIDES 700 KCALS, 40 G PROTEIN.
[2024-08-09 16:33] LABS: Appearance Urine Turbid; Color Urine Yellow; Glucose Urine UA Negative (Negative); Leukocyte Esterase Urine Negative (Negative); Nitrite Urine Negative (Negative); PH 8.5 (5.0-9.0); Urine Blood Negative (Negative); Urine Ketones Negative (Negative); Urine Protein Negative (Neg-Trace)
[2024-08-09 16:39] LABS: Bacteria Urine None Seen (None Seen); Hyaline Casts Urine 0-2 /LPF (0-2); RBC Urine 0-2 /HPF (0-2); Squamous Epithelial Cell Urine 0-2 /HPF (0-2); WBC Urine 0-5 /HPF (0-5)
[2024-08-09 16:55] LABS: Amphetamine Screen Urine Not Detected (Not Detect); Barbiturates, Urine Not Detected (Not Detect); Benzodiazepines Screen Urine POSITIVE (Not Detect); Buprenorphine Scr Not Detected (Not Detect); Cannabinoid Screen Urine Not Detected (Not Detect); Cocaine Screen Urine POSITIVE (Not Detect); Fentanyl, urine POSITIVE (Not Detect); Methadone Screen, Urine Positive (Not Detect); Opiate Screen Urine POSITIVE (Not Detect); Oxycodone Screen Urine Not Detected (Not Detect); Phencyclidine Screen Urine Not Detected (Not Detect)
[2024-08-09 19:55] VITALS: BP 100/55; PULSE 57; RESP 14; TEMP 36.4; O2SAT 99
[2024-08-09] MEDS: cloNIDine HCL 0.1 MG TABLET PO (20:42)
[2024-08-09] MEDS: LORazepam 1 MG TABLET PO (20:42)
[2024-08-09] MEDS: Mirtazapine 15 MG TABLET PO (20:42)
[2024-08-10 07:36] VITALS: BP 103/61; PULSE 70; RESP 16; TEMP 36.9; O2SAT 100
[2024-08-10] MEDS: methADONE HCl 20 MG/2 ML ORAL.CONC 105 MG PO (08:08)
[2024-08-10 08:47] VITALS: BP 103/61
[2024-08-10] MEDS: cloNIDine HCL 0.1 MG TABLET PO ×2 (08:47→21:12)
[2024-08-10] MEDS: Thiamine HCL 100 MG TABLET PO (08:47)
--- NOTE | 2024-08-10 10:13 | MHC.RECOVRN ---
Pt had positive screen for unhealthy alcohol use on admission, subsequently met with t/w to discuss alcohol use and recovery supports/options. This health technical writer met with patient to discuss current alcohol use and concerns related to increased risk of alcohol related problems.? Pt reports he has been drinking alcohol for approx 12 years. He drinks 2-3 times/wk and the amount varies depending on mood/finances. Discussed how alcohol use has impacted health, including negative impact on mental health causing him increased depression. Withdrawal History: Pt denies any OD's Treatment History: Pt has been in numerous treatment programs and still is not aware of why he continues to return to use. Supports:?Mother, grandmother, brothers, current methadone clinic involvement. Discussed risk reduction strategies including drinking below the recommended limit. Provided pt with written resources including information on inpatient and outpatient treatment, YUNG, harm reduction, and recovery coaching. Pt plans to transition to CSS/TSS following hospitalization and hopes to remain in recovery continuium in order to learn about maintaining sobriety. Pt accepting of RC and t/w placed referral. T/W encouraged pt to consider YUNG (if appropriate with methadone) and also encouraged him to discuss MStUD with his team at the clinic. Pt provided with t/w contact information if questions or concerns arise. Denies other questions or concerns at this time.
[2024-08-10] MEDS: hydrOXYzine HCL 25 MG TABLET PO ×2 (12:25→21:12)
[2024-08-10] MEDS: Sertraline HCL 50 MG TABLET PO (15:16)
[2024-08-10 20:00] VITALS: BP 117/73; PULSE 62; RESP 16; TEMP 36.9; O2SAT 97
--- NOTE | 2024-08-10 20:06 | P.PNPSI_ITS ---
Subjective Subjective Date of Service: 08/10/24 Reason For Visit: fell Head strike, LOC +c collar Interim History: calm, cooperative, pleasant. c/o sweating, anxiety, alcohol, cocaine, opioid use. PTSD Dx. discuss R/B of SSRI, pt agrees to start zoloft trial. per staff, dep/anx. no groups. CIWA 8, 0, 0. wound consult pending. slept 8 hours. Mental Status Exam Mental Status Exam Narrative: Pt is alert and oriented; behavior is cooperative and calm; dressed in casual attire; mood is described as anxious and depressed ; eye contact appropriate; Speech is normal rate, volume and not pressured; thought process is organized and goal directed; Thought content is on tx; otherwise pertinent to relevant topics and without any delusional content, paranoid ideations or grandiosity; denies HI/VH/AH. Patient reports suicidal ideation with plan to intentionally overdose. Diagnostics Vital Signs (24Hr): Vital Signs - 24 hr 08/10/24 07:36 08/10/24 08:47 Temperature 98.4 F Pulse Rate 70 Respiratory Rate 16 Blood Pressure 103/61 103/61 Pulse Oximetry 100 Oxygen Delivery Method Room Air BMI result Body Mass Index 21.0 Labs 08/07/24 22:58 08/07/24 22:58 Labs: Laboratory Results - last 48 hr 08/09/24 16:06 Urine Color Yellow Urine Appearance Turbid Urine pH 8.5 Ur Specific [place] 1.020 Urine Protein Negative Urine Glucose (UA) Negative Urine Ketones Negative Urine Blood Negative Urine Nitrite Negative Ur Leukocyte Esterase Negative Urine RBC 0-2 Urine WBC 0-5 Ur Squamous Epith Cells 0-2 Urine Bacteria None Seen Hyaline Casts 0-2 Urine Opiates Screen POSITIVE H Ur Buprenorphine Scrn Not Detected Ur Oxycodone Screen Not Detected Urine Methadone Screen Positive H Urine Fentanyl Screen POSITIVE H Ur Barbiturates Screen Not Detected Ur Phencyclidine Scrn Not Detected Ur Amphetamines Screen Not Detected U Benzodiazepines Scrn POSITIVE H Urine Cocaine Screen POSITIVE H U Marijuana (THC) Screen Not Detected Imaging Radiology Impressions: ITS Impressions Cervical Spine CT 08/07/24 22:40 IMPRESSION: 1. No evidence of acute intracranial hemorrhage or edematous territorial infarction. 2. Mild to moderate nonspecific white matter changes. 3. No evidence of acute fracture or traumatic subluxation of the cervical spine. Electronically signed by: Zana De Leon DO 08/08/2024 12:25 AM EDT RP Head CT 08/07/24 22:52 IMPRESSION: 1. No evidence of acute intracranial hemorrhage or edematous territorial infarction. 2. Mild to moderate nonspecific white matter changes. 3. No evidence of acute fracture or traumatic subluxation of the cervical spine. Electronically signed by: Zana De Leon DO 08/08/2024 12:25 AM EDT RP Medications Medications Current Medications Acetaminophen (Acetaminophen 325 Mg Tablet) 650 mg PO Q6H PRN PRN Reason: Headache/Pain Mild Scale (1-3) Al Hydroxide/Mg Hydroxide (Magnesium Hydrox/Alum Hydrox 30 Ml Oral.Susp) 30 ml PO Q6H PRN PRN Reason: Heartburn/Nausea Clonidine HCl (Clonidine Hcl 0.1 Mg Tablet) 0.1 mg PO BID [facility]; Protocol Last Admin: 08/10/24 08:47 Dose: 0.1 mg Hydroxyzine HCl (Hydroxyzine Hcl 25 Mg Tablet) 25 mg PO Q6H PRN PRN Reason: Anxiety Last Admin: 08/10/24 12:25 Dose: 25 mg Lorazepam (Lorazepam 1 Mg Tablet) 1 mg PO Q2H PRN PRN Reason: CIWA 8-11 Last Admin: 08/09/24 20:42 Dose: 1 mg Lorazepam (Lorazepam 1 Mg Tablet) 2 mg PO Q2H PRN PRN Reason: CIWA 12-15 Lorazepam (Lorazepam 1 Mg Tablet) 3 mg PO Q2H PRN PRN Reason: CIWA > 15, and call Magnesium Hydroxide (Milk Of Magnesia 30 Ml Oral.Susp) 30 ml PO DAILY PRN PRN Reason: Constipation Methadone HCl (Methadone Hcl 20 Mg/2 Ml Oral.Conc) 105 mg PO DAILY [facility] Last Admin: 08/10/24 08:08 Dose: 105 mg Mirtazapine (Mirtazapine 15 Mg Tablet) 15 mg PO BEDTIME LORRAINE Last Admin: 08/09/24 20:42 Dose: 15 mg Nicotine (Nicotine 21 Mg Patch.Td24) 21 mg TRANSDERMA DAILY [facility] Last Admin: 08/10/24 08:47 Dose: Not Given Nicotine Polacrilex (Nicotine Polacrilex 2 Mg Gum) 4 mg BUCCAL Q2H PRN PRN Reason: Nicotine Cravings Sertraline HCl (Sertraline Hcl 50 Mg Tablet) 50 mg PO DAILY [facility] Last Admin: 08/10/24 15:16 Dose: 50 mg Thiamine HCl (Thiamine Hcl 100 Mg Tablet) 100 mg PO DAILY [facility] Last Admin: 08/10/24 08:47 Dose: 100 mg Trazodone HCl (Trazodone Hcl 50 Mg Tablet) 50 mg PO BEDTIME MRX1 PRN PRN Reason: Insomnia Allergies Allergies Allergy/AdvReac Type Severity Reaction Status Date / Time No Known Allergies Allergy Verified 08/07/24 22:18 [No Known Allergies*] Assessment & Plan Assessment & Plan (1) MDD (major depressive disorder), recurrent episode: Status: Acute Code(s): F33.9 - Major depressive disorder, recurrent, unspecified (2) PTSD (post-traumatic stress disorder): Status: Acute Code(s): F43.10 - Post-traumatic stress disorder, unspecified (3) Opioid use disorder: Status: Acute Code(s): F11.90 - Opioid use, unspecified, uncomplicated (4) Cocaine use disorder: Status: Acute Code(s): F14.10 - Cocaine abuse, uncomplicated (5) Homelessness: Status: Acute Code(s): Z59.00 - Homelessness unspecified Plan Patient is a 38-year-old male with history of MDD, PTSD, opiate use disorder and cocaine use disorder who was brought in to the ER after being found slumped over on the street and reported suicidal ideation with plan to intentionally overdose. Plan: CV 15 minute safety checks Continue methadone Start: Mirtazapine 15 mg p.o. bedtime Clonidine 0.1 mg p.o. b.i.d. CIWA protocol Encourage groups Referral to outpatient prescriber and therapist Referral to substance abuse program Discharge planning 08/10: got 1 mg of ativan per CIWA since admission. not in EtOH withdrawal, DC ativan PRN and CIWA. start zoloft 50 mg daily. c/o sweats, anxiety; recent alcohol, cocaine, opioid use. Reason for continued inpatient stay Substantial Risk for: harm to self, inability to function and rapid decompensation Time Spent With Patient Time: Total time managing care of this patient today ____ minutes.
[2024-08-10] MEDS: Mirtazapine 15 MG TABLET PO (21:12)
[2024-08-11 07:36] VITALS: BP 86/50; PULSE 60; RESP 14; TEMP 36.9; O2SAT 98
[2024-08-11] MEDS: methADONE HCl 20 MG/2 ML ORAL.CONC 105 MG PO (08:51)
[2024-08-11] MEDS: Sertraline HCL 50 MG TABLET PO (08:53)
[2024-08-11] MEDS: Thiamine HCL 100 MG TABLET PO (08:53)
[2024-08-11 10:18] VITALS: BP 101/58
[2024-08-11 12:27] VITALS: BP 108/70
[2024-08-11] MEDS: cloNIDine HCL 0.1 MG TABLET PO ×2 (12:27→22:10)
[2024-08-11] MEDS: hydrOXYzine HCL 25 MG TABLET PO (17:22)
--- NOTE | 2024-08-11 17:47 | HO.PSYCHPN ---
Subjective Subjective Date of Service: 08/11/24 Reason For Visit: fell Head strike, LOC +c collar Interim History: in bed. no issues, no requests. per staff, no dep/anx. not attending groups. taking meds. in bed all shift. not social. wound consult pending. clonidine held early for hypotension, given later in the day. Mental Status Exam Mental Status Exam Narrative: Pt is alert and oriented; behavior is cooperative and calm; dressed in casual attire; mood is described as anxious and depressed ; eye contact appropriate; Speech is normal rate, volume and not pressured; thought process is organized and goal directed; Thought content is on tx; otherwise pertinent to relevant topics and without any delusional content, paranoid ideations or grandiosity; denies HI/VH/AH. Patient reports suicidal ideation with plan to intentionally overdose. Diagnostics Vital Signs (24Hr): Vital Signs - 24 hr 08/10/24 20:00 08/11/24 07:36 08/11/24 10:18 Temperature 98.4 F 98.5 F Pulse Rate 62 60 Respiratory Rate 16 14 Blood Pressure 117/73 86/50 L 101/58 L Pulse Oximetry 97 98 Oxygen Delivery Method Room Air Room Air 08/11/24 12:27 Temperature Pulse Rate Respiratory Rate Blood Pressure 108/70 Pulse Oximetry Oxygen Delivery Method BMI result Body Mass Index 21.0 Labs 08/07/24 22:58 08/07/24 22:58 Imaging Radiology Impressions: ITS Impressions Cervical Spine CT 08/07/24 22:40 IMPRESSION: 1. No evidence of acute intracranial hemorrhage or edematous territorial infarction. 2. Mild to moderate nonspecific white matter changes. 3. No evidence of acute fracture or traumatic subluxation of the cervical spine. Electronically signed by: Zana De Leon DO 08/08/2024 12:25 AM EDT RP Head CT 08/07/24 22:52 IMPRESSION: 1. No evidence of acute intracranial hemorrhage or edematous territorial infarction. 2. Mild to moderate nonspecific white matter changes. 3. No evidence of acute fracture or traumatic subluxation of the cervical spine. Electronically signed by: Zana De Leon DO 08/08/2024 12:25 AM EDT RP Medications Medications Current Medications Acetaminophen (Acetaminophen 325 Mg Tablet) 650 mg PO Q6H PRN PRN Reason: Headache/Pain Mild Scale (1-3) Al Hydroxide/Mg Hydroxide (Magnesium Hydrox/Alum Hydrox 30 Ml Oral.Susp) 30 ml PO Q6H PRN PRN Reason: Heartburn/Nausea Clonidine HCl (Clonidine Hcl 0.1 Mg Tablet) 0.1 mg PO BID [facility]; Protocol Last Admin: 08/11/24 12:27 Dose: 0.1 mg Hydroxyzine HCl (Hydroxyzine Hcl 25 Mg Tablet) 25 mg PO Q6H PRN PRN Reason: Anxiety Last Admin: 08/11/24 17:22 Dose: 25 mg Magnesium Hydroxide (Milk Of Magnesia 30 Ml Oral.Susp) 30 ml PO DAILY PRN PRN Reason: Constipation Methadone HCl (Methadone Hcl 20 Mg/2 Ml Oral.Conc) 105 mg PO DAILY [facility] Last Admin: 08/11/24 08:51 Dose: 105 mg Mirtazapine (Mirtazapine 15 Mg Tablet) 15 mg PO BEDTIME [facility] Last Admin: 08/10/24 21:12 Dose: 15 mg Nicotine (Nicotine 21 Mg Patch.Td24) 21 mg TRANSDERMA DAILY [facility] Last Admin: 08/11/24 08:48 Dose: Not Given Nicotine Polacrilex (Nicotine Polacrilex 2 Mg Gum) 4 mg BUCCAL Q2H PRN PRN Reason: Nicotine Cravings Sertraline HCl (Sertraline Hcl 50 Mg Tablet) 50 mg PO DAILY [facility] Last Admin: 08/11/24 08:53 Dose: 50 mg Thiamine HCl (Thiamine Hcl 100 Mg Tablet) 100 mg PO DAILY [facility] Last Admin: 08/11/24 08:53 Dose: 100 mg Trazodone HCl (Trazodone Hcl 50 Mg Tablet) 50 mg PO BEDTIME MRX1 PRN PRN Reason: Insomnia Allergies Allergies Allergy/AdvReac Type Severity Reaction Status Date / Time No Known Allergies Allergy Verified 08/07/24 22:18 [No Known Allergies*] Assessment & Plan Assessment & Plan (1) MDD (major depressive disorder), recurrent episode: Status: Acute Code(s): F33.9 - Major depressive disorder, recurrent, unspecified (2) PTSD (post-traumatic stress disorder): Status: Acute Code(s): F43.10 - Post-traumatic stress disorder, unspecified (3) Opioid use disorder: Status: Acute Code(s): F11.90 - Opioid use, unspecified, uncomplicated (4) Cocaine use disorder: Status: Acute Code(s): F14.10 - Cocaine abuse, uncomplicated (5) Homelessness: Status: Acute Code(s): Z59.00 - Homelessness unspecified Plan Patient is a 38-year-old male with history of MDD, PTSD, opiate use disorder and cocaine use disorder who was brought in to the ER after being found slumped over on the street and reported suicidal ideation with plan to intentionally overdose. Plan: CV 15 minute safety checks Continue methadone Start: Mirtazapine 15 mg p.o. bedtime Clonidine 0.1 mg p.o. b.i.d. CIWA protocol Encourage groups Referral to outpatient prescriber and therapist Referral to substance abuse program Discharge planning 08/10: got 1 mg of ativan per CIWA since admission. not in EtOH withdrawal, DC ativan PRN and CIWA. start zoloft 50 mg daily. c/o sweats, anxiety; recent alcohol, cocaine, opioid use. 08/11: continue current mgmt. no requests or complaints. wound consult pending. Reason for continued inpatient stay Substantial Risk for: inability to function and rapid decompensation Time Spent With Patient Time: Total time managing care of this patient today ____ minutes.
[2024-08-11 22:03] VITALS: BP 106/62; PULSE 56; RESP 14; TEMP 36.9; O2SAT 98
[2024-08-11] MEDS: Mirtazapine 15 MG TABLET PO (22:10)
[2024-08-12 07:48] VITALS: BP 89/51; PULSE 56; RESP 16; TEMP 36.8; O2SAT 99
[2024-08-12] MEDS: methADONE HCl 20 MG/2 ML ORAL.CONC 105 MG PO (08:21)
[2024-08-12] MEDS: Sertraline HCL 50 MG TABLET PO (08:24)
[2024-08-12] MEDS: Thiamine HCL 100 MG TABLET PO (08:24)
[2024-08-12 10:01] VITALS: BP 109/62
[2024-08-12] MEDS: cloNIDine HCL 0.1 MG TABLET PO (10:01)
[2024-08-12] MEDS: Mineral Oil/Petrolatum,White 106 GM Tube 1 APPL TOPICAL (10:12)
[2024-08-12 15:45] VITALS: BP 96/52
[2024-08-12] MEDS: hydrOXYzine HCL 25 MG TABLET PO (17:51)
--- NOTE | 2024-08-12 19:18 | P.PNPSI_ITS ---
Subjective Subjective Date of Service: 08/12/24 Reason For Visit: fell Head strike, LOC +c collar Interim History: c/o anxiety. asking for more clonidine. per staff, dep/anx. eating some meals. felt brain was rushing yesterday afternoon. +meds. sad mood yesterday. Mental Status Exam Mental Status Exam Narrative: Pt is alert and oriented; behavior is cooperative and calm; dressed in casual attire; mood is described as anxious and depressed ; eye contact appropriate; Speech is normal rate, volume and not pressured; thought process is organized and goal directed; Thought content is on tx; otherwise pertinent to relevant topics and without any delusional content, paranoid ideations or grandiosity; denies HI/VH/AH. Patient reports suicidal ideation with plan to intentionally overdose. Diagnostics Vital Signs (24Hr): Vital Signs - 24 hr 08/11/24 22:03 08/12/24 07:48 08/12/24 10:01 Temperature 98.4 F 98.3 F Pulse Rate 56 56 Respiratory Rate 14 16 Blood Pressure 106/62 89/51 L 109/62 Pulse Oximetry 98 99 Oxygen Delivery Method Room Air Room Air 08/12/24 15:45 Temperature Pulse Rate Respiratory Rate Blood Pressure 96/52 L Pulse Oximetry Oxygen Delivery Method BMI result Body Mass Index 21.0 Labs 08/07/24 22:58 08/07/24 22:58 Imaging Radiology Impressions: ITS Impressions Cervical Spine CT 08/07/24 22:40 IMPRESSION: 1. No evidence of acute intracranial hemorrhage or edematous territorial infarction. 2. Mild to moderate nonspecific white matter changes. 3. No evidence of acute fracture or traumatic subluxation of the cervical spine. Electronically signed by: Zana De Leon DO 08/08/2024 12:25 AM EDT RP Head CT 08/07/24 22:52 IMPRESSION: 1. No evidence of acute intracranial hemorrhage or edematous territorial infarction. 2. Mild to moderate nonspecific white matter changes. 3. No evidence of acute fracture or traumatic subluxation of the cervical spine. Electronically signed by: Zana De Leon DO 08/08/2024 12:25 AM EDT RP Medications Medications Current Medications Acetaminophen (Acetaminophen 325 Mg Tablet) 650 mg PO Q6H PRN PRN Reason: Headache/Pain Mild Scale (1-3) Al Hydroxide/Mg Hydroxide (Magnesium Hydrox/Alum Hydrox 30 Ml Oral.Susp) 30 ml PO Q6H PRN PRN Reason: Heartburn/Nausea Clonidine HCl (Clonidine Hcl 0.1 Mg Tablet) 0.1 mg PO TID [facility]; Protocol Last Admin: 08/12/24 15:45 Dose: Not Given Hydroxyzine HCl (Hydroxyzine Hcl 25 Mg Tablet) 25 mg PO Q6H PRN PRN Reason: Anxiety Last Admin: 08/12/24 17:51 Dose: 25 mg Magnesium Hydroxide (Milk Of Magnesia 30 Ml Oral.Susp) 30 ml PO DAILY PRN PRN Reason: Constipation Methadone HCl (Methadone Hcl 20 Mg/2 Ml Oral.Conc) 105 mg PO DAILY [facility] Last Admin: 08/12/24 08:21 Dose: 105 mg Mirtazapine (Mirtazapine 15 Mg Tablet) 15 mg PO BEDTIME [facility] Last Admin: 08/11/24 22:10 Dose: 15 mg Multi-Ingred Cream/Lotion/Oil/Oint (Mineral Oil/Petrolatum,White 106 Gm Tube) 1 appl TOPICAL DAILY [facility]; Protocol Last Admin: 08/12/24 10:12 Dose: 1 appl Nicotine (Nicotine 21 Mg Patch.Td24) 21 mg TRANSDERMA DAILY PRN PRN Reason: craving Nicotine Polacrilex (Nicotine Polacrilex 2 Mg Gum) 4 mg BUCCAL Q2H PRN PRN Reason: Nicotine Cravings Sertraline HCl (Sertraline Hcl 50 Mg Tablet) 50 mg PO DAILY [facility] Last Admin: 08/12/24 08:24 Dose: 50 mg Thiamine HCl (Thiamine Hcl 100 Mg Tablet) 100 mg PO DAILY [facility] Last Admin: 08/12/24 08:24 Dose: 100 mg Trazodone HCl (Trazodone Hcl 50 Mg Tablet) 50 mg PO BEDTIME MRX1 PRN PRN Reason: Insomnia Allergies Allergies Allergy/AdvReac Type Severity Reaction Status Date / Time No Known Allergies Allergy Verified 08/07/24 22:18 [No Known Allergies*] Assessment & Plan Assessment & Plan (1) MDD (major depressive disorder), recurrent episode: Status: Acute Code(s): F33.9 - Major depressive disorder, recurrent, unspecified (2) PTSD (post-traumatic stress disorder): Status: Acute Code(s): F43.10 - Post-traumatic stress disorder, unspecified (3) Opioid use disorder: Status: Acute Code(s): F11.90 - Opioid use, unspecified, uncomplicated (4) Cocaine use disorder: Status: Acute Code(s): F14.10 - Cocaine abuse, uncomplicated (5) Homelessness: Status: Acute Code(s): Z59.00 - Homelessness unspecified Plan Patient is a 38-year-old male with history of MDD, PTSD, opiate use disorder and cocaine use disorder who was brought in to the ER after being found slumped over on the street and reported suicidal ideation with plan to intentionally overdose. Plan: CV 15 minute safety checks Continue methadone Start: Mirtazapine 15 mg p.o. bedtime Clonidine 0.1 mg p.o. b.i.d. CIWA protocol Encourage groups Referral to outpatient prescriber and therapist Referral to substance abuse program Discharge planning 08/10: got 1 mg of ativan per CIWA since admission. not in EtOH withdrawal, DC ativan PRN and CIWA. start zoloft 50 mg daily. c/o sweats, anxiety; recent alcohol, cocaine, opioid use. 08/11: continue current mgmt. no requests or complaints. wound consult pending. 08/12: increase clonidine to 0.1 TID per pt request. otherwise continue current mgmt. Reason for continued inpatient stay Substantial Risk for: inability to function and rapid decompensation Time Spent With Patient Time: Total time managing care of this patient today ____ minutes.
[2024-08-12 20:00] VITALS: BP 113/60; PULSE 66; RESP 16; TEMP 37.2; O2SAT 97
[2024-08-12 21:21] VITALS: BP 99/57; PULSE 58; RESP 16; O2SAT 94
[2024-08-12] MEDS: Mirtazapine 15 MG TABLET PO (21:25)
[2024-08-13 08:00] VITALS: BP 109/60; PULSE 66; RESP 18; TEMP 36.9; O2SAT 99
[2024-08-13] MEDS: methADONE HCl 20 MG/2 ML ORAL.CONC 105 MG PO (08:07)
[2024-08-13 08:09] VITALS: BP 109/60
[2024-08-13] MEDS: Thiamine HCL 100 MG TABLET PO (08:09)
[2024-08-13] MEDS: Sertraline HCL 50 MG TABLET PO (08:09)
[2024-08-13] MEDS: cloNIDine HCL 0.1 MG TABLET PO ×2 (08:09→15:48)
--- NOTE | 2024-08-13 09:34 | P.PNPSI_ITS ---
Subjective Subjective Date of Service: 08/13/24 Reason For Visit: fell Head strike, LOC +c collar Subjective Notes: Conditional Voluntary Interim History: Reviewed with Dr. Doe. Active on unit. attending groups. Pt reports feeling anxious today; pt stated, my depression is getting lower . Pt reports he is interested in attending an outpatient substance abuse program when discharged. denies SI/HI/VH/AH. Pt reports sleeping well. Medication Compliance: Yes Side effects from medications: No Attending Groups: Yes Review of Systems Constitutional: Reports as per HPI Eyes: Reports as per HPI Reports as per HPI Cardiovascular: Reports as per HPI Respiratory: Reports as per HPI Gastrointestinal: Reports as per HPI Genitourinary: Reports as per HPI Musculoskeletal: Reports as per HPI Skin/Breast: Reports as per HPI Reports as per HPI Psychiatric: Reports as per HPI Endocrine: Reports as per HPI Hematologic/Lymphatic: Reports as per HPI Allergic/Immunologic: Reports as per HPI Mental Status Exam Mental Status Exam Narrative: Pt is alert and oriented; behavior is cooperative and calm; dressed in casual attire; mood is described as anxious and depressed ; eye contact appropriate; Speech is normal rate, volume and not pressured; thought process is organized and goal directed; Thought content is on tx; otherwise pertinent to relevant topics and without any delusional content, paranoid ideations or grandiosity; denies SI/HI/VH/AH. Diagnostics Vital Signs (24Hr): Vital Signs - 24 hr 08/12/24 10:01 08/12/24 15:45 08/12/24 20:00 Temperature 98.9 F Pulse Rate 66 Respiratory Rate 16 Blood Pressure 109/62 96/52 L 113/60 Pulse Oximetry 97 Oxygen Delivery Method Room Air 08/12/24 21:21 08/13/24 08:00 08/13/24 08:09 Temperature 98.4 F Pulse Rate 58 66 Respiratory Rate 16 18 Blood Pressure 99/57 L 109/60 109/60 Pulse Oximetry 94 99 Oxygen Delivery Method Room Air Room Air BMI result Body Mass Index 21.0 Labs 08/07/24 22:58 08/07/24 22:58 Imaging Radiology Impressions: ITS Impressions Cervical Spine CT 08/07/24 22:40 IMPRESSION: 1. No evidence of acute intracranial hemorrhage or edematous territorial infarction. 2. Mild to moderate nonspecific white matter changes. 3. No evidence of acute fracture or traumatic subluxation of the cervical spine. Electronically signed by: Zana De Leon DO 08/08/2024 12:25 AM EDT RP Head CT 08/07/24 22:52 IMPRESSION: 1. No evidence of acute intracranial hemorrhage or edematous territorial infarction. 2. Mild to moderate nonspecific white matter changes. 3. No evidence of acute fracture or traumatic subluxation of the cervical spine. Electronically signed by: Zana De Leon DO 08/08/2024 12:25 AM EDT RP Medications Medications Current Medications Acetaminophen (Acetaminophen 325 Mg Tablet) 650 mg PO Q6H PRN PRN Reason: Headache/Pain Mild Scale (1-3) Al Hydroxide/Mg Hydroxide (Magnesium Hydrox/Alum Hydrox 30 Ml Oral.Susp) 30 ml PO Q6H PRN PRN Reason: Heartburn/Nausea Clonidine HCl (Clonidine Hcl 0.1 Mg Tablet) 0.1 mg PO TID [facility]; Protocol Last Admin: 08/13/24 08:09 Dose: 0.1 mg Hydroxyzine HCl (Hydroxyzine Hcl 25 Mg Tablet) 25 mg PO Q6H PRN PRN Reason: Anxiety Last Admin: 08/12/24 17:51 Dose: 25 mg Magnesium Hydroxide (Milk Of Magnesia 30 Ml Oral.Susp) 30 ml PO DAILY PRN PRN Reason: Constipation Methadone HCl (Methadone Hcl 20 Mg/2 Ml Oral.Conc) 105 mg PO DAILY [facility] Last Admin: 08/13/24 08:07 Dose: 105 mg Mirtazapine (Mirtazapine 15 Mg Tablet) 15 mg PO BEDTIME [facility] Last Admin: 08/12/24 21:25 Dose: 15 mg Multi-Ingred Cream/Lotion/Oil/Oint (Mineral Oil/Petrolatum,White 106 Gm Tube) 1 appl TOPICAL DAILY [facility]; Protocol Last Admin: 08/13/24 08:31 Dose: Not Given Nicotine (Nicotine 21 Mg Patch.Td24) 21 mg TRANSDERMA DAILY PRN PRN Reason: craving Nicotine Polacrilex (Nicotine Polacrilex 2 Mg Gum) 4 mg BUCCAL Q2H PRN PRN Reason: Nicotine Cravings Sertraline HCl (Sertraline Hcl 50 Mg Tablet) 50 mg PO DAILY [facility] Last Admin: 08/13/24 08:09 Dose: 50 mg Thiamine HCl (Thiamine Hcl 100 Mg Tablet) 100 mg PO DAILY [facility] Last Admin: 08/13/24 08:09 Dose: 100 mg Trazodone HCl (Trazodone Hcl 50 Mg Tablet) 50 mg PO BEDTIME MRX1 PRN PRN Reason: Insomnia Allergies Allergies Allergy/AdvReac Type Severity Reaction Status Date / Time No Known Allergies Allergy Verified 08/07/24 22:18 [No Known Allergies*] Assessment & Plan Assessment & Plan (1) MDD (major depressive disorder), recurrent episode: Status: Acute Code(s): F33.9 - Major depressive disorder, recurrent, unspecified (2) PTSD (post-traumatic stress disorder): Status: Acute Code(s): F43.10 - Post-traumatic stress disorder, unspecified (3) Opioid use disorder: Status: Acute Code(s): F11.90 - Opioid use, unspecified, uncomplicated (4) Cocaine use disorder: Status: Acute Code(s): F14.10 - Cocaine abuse, uncomplicated (5) Homelessness: Status: Acute Code(s): Z59.00 - Homelessness unspecified Plan Patient is a 38-year-old male with history of MDD, PTSD, opiate use disorder and cocaine use disorder who was brought in to the ER after being found slumped over on the street and reported suicidal ideation with plan to intentionally overdose. Plan: CV 15 minute safety checks Continue methadone Start: Mirtazapine 15 mg p.o. bedtime Clonidine 0.1 mg p.o. b.i.d. CIWA protocol Encourage groups Referral to outpatient prescriber and therapist Referral to substance abuse program Discharge planning 08/10: got 1 mg of ativan per CIWA since admission. not in EtOH withdrawal, DC ativan PRN and CIWA. start zoloft 50 mg daily. c/o sweats, anxiety; recent alcohol, cocaine, opioid use. 08/11: continue current mgmt. no requests or complaints. wound consult pending. 08/12: increase clonidine to 0.1 TID per pt request. otherwise continue current mgmt. 08/13: Active on unit. attending groups. Pt reports feeling anxious today; pt stated, my depression is getting lower . Pt reports he is interested in attending an outpatient substance abuse program when discharged. denies SI/HI/VH/AH. Pt reports sleeping well. Continue current tx plan. Patient educated on: diagnosis, medication risk/benefits, substance abuse and therapeutic strategies Reason for continued inpatient stay Substantial Risk for: med/psych decompensation Time Spent With Patient Time: Total time managing care of this patient today _20___ minutes.
[2024-08-13] MEDS: Nicotine Polacrilex 2 MG GUM 4 MG BUCCAL (10:36)
[2024-08-13] MEDS: Acetaminophen 325 MG TABLET 650 MG PO (12:30)
[2024-08-13 15:30] VITALS: BP 103/56; PULSE 60
[2024-08-13] MEDS: Ibuprofen 600 MG TABLET PO (15:48)
--- NOTE | 2024-08-13 19:37 | HO.WOUND ---
Wound Care Consult: Initial 38yr old male admitted to [facility] on 08/08/04 - See H&P for detailed history. Wound consult placed for bilateral knee wounds and right great toe wound. Arrival to unit patient was agreeable to assessment. Patient reports he is unaware of the direct cause of the wounds but reports he believes they were secondary to falls. Bilateral Knees are consistent with traumatic / abrasions. The knees are in various stages both healing, no s/s of infection at this time. The right knee appears healed but recommend keeping covered with foam dressing while tissue is fragile and completes tissue maturation phase. The left knee is partially healed with a dry flaking scab in place. Recommend keeping covered with Foam dressing to allow for continued healing. Right Great Toe noted for traumatic injury - toe nail appears to be lifting suspect trauma such as stubbing of toe. This site is not yet healing - direct care team to be advised to monitor for s/s of infection see below. Todays assessment does not reveal infection - there is significant moisture / maceration noted. Recommend Durafiber Ag for moisture management and antimicrobial properties. Recommendations: 1. Bilateral Knees - Cleanse with soap and water with routine showering or NS moist gauze, pat Dry. Cover with foam dressing, peel back and assess Q shift and change every 5 days and PRN. 2. Right Great Toe - Cleanse with soap and water with routine showering or NS moist gauze, pat Dry. Apply skin prep to the periwound, cover wound bed with Durafiber AG, followed by dressing to secure in place such as dry gauze and tape. Monitor for s/s of infection such as warmth, odor, increased drainage and notify provider. change every other day and PRN.
[2024-08-13 20:00] VITALS: BP 95/50; PULSE 58; RESP 16; TEMP 37.1; O2SAT 100
[2024-08-13] MEDS: Mirtazapine 15 MG TABLET PO (20:06)
[2024-08-13 20:08] VITALS: BP 89/54
[2024-08-14 07:54] VITALS: BP 105/62; PULSE 62; RESP 16; TEMP 36.3; O2SAT 99
[2024-08-14] MEDS: methADONE HCl 20 MG/2 ML ORAL.CONC 105 MG PO (08:30)
[2024-08-14] MEDS: cloNIDine HCL 0.1 MG TABLET PO ×3 (08:52→20:46)
[2024-08-14] MEDS: Thiamine HCL 100 MG TABLET PO (08:53)
[2024-08-14] MEDS: Sertraline HCL 50 MG TABLET PO (08:53)
--- NOTE | 2024-08-14 09:46 | PC.NURSE ---
Devon Pacheco reported that he noticed that he developed a lump on his Left arm overnight. Pt reported that the lump is painful. Ruby Hampton NP made aware via [employer].
[2024-08-14] MEDS: Acetaminophen 325 MG TABLET 650 MG PO (10:17)
--- NOTE | 2024-08-14 11:18 | HO.PSYCHPN ---
Subjective Subjective Date of Service: 08/14/24 Reason For Visit: fell Head strike, LOC +c collar Subjective Notes: Conditional Voluntary Interim History: Reviewed with Dr. Doe. Pt reports feeling okay today; continues to report anxiety and depression. per nursing, slept 7 hours. denies SI/HI/VH/AH. Hospitalist consult placed for left arm abbess; pt reports discomfort. Medication Compliance: Yes Side effects from medications: No Attending Groups: Yes Review of Systems Review of Systems Constitutional : No Weight loss, No Fever, No Chills, No Night Sweats, No Fatigue, No Malaise ENT/Mouth : No Hearing loss, No Ear Pain, No Nasal Congestion, No Sinus Pain, No Hoarseness, No sore throat, No Rhinorrhea, No Swallowing Difficulty Eyes: No Eye Pain, No Swelling, No Redness, No Foreign Body, No Discharge, No Vision Changes Cardiovascular : No Chest Pain, No SOB, No Dyspnea on Exertion, No Orthopnea, No Edema, No Palpitations Respiratory : No Cough, No Sputum, No Wheezing, No Smoke Exposure, No Dyspnea Gastrointestinal : No Nausea, No Vomiting, No Diarrhea, No Constipation, No abdominal Pain, No Hematochezia, No Melena Genitourinary : no irregular bleeding, No Dysuria, No Urinary Frequency, No Hematuria, No Urinary Incontinence, No Urgency, No Flank Pain, No Urinary Flow Changes, No Hesitancy Musculoskeletal : No joint pain, No Myalgias, No Joint Swelling Skin : No Skin Lesions, No rash Neuro : No Weakness, No Numbness, No Paresthesias, No Loss of Consciousness, No Dizziness, No Headache Psych : Complaining of depression, suicidal thoughts, no HI, admits to polysubstance abuse Heme/Lymph: No Bruising, No Bleeding,No Lymphadenopathy Endocrine : No Polyuria, No Polydipsia, No Temperature Intolerance Constitutional: Reports as per HPI Eyes: Reports as per HPI Reports as per HPI Cardiovascular: Reports as per HPI Respiratory: Reports as per HPI Gastrointestinal: Reports as per HPI Genitourinary: Reports as per HPI Musculoskeletal: Reports as per HPI Skin/Breast: Reports as per HPI Reports as per HPI Psychiatric: Reports as per HPI Endocrine: Reports as per HPI Hematologic/Lymphatic: Reports as per HPI Allergic/Immunologic: Reports as per HPI Mental Status Exam Mental Status Exam Narrative: Pt is alert and oriented; behavior is cooperative and calm; dressed in casual attire; mood is described as anxious and depressed ; eye contact appropriate; Speech is normal rate, volume and not pressured; thought process is organized and goal directed; Thought content is on tx; otherwise pertinent to relevant topics and without any delusional content, paranoid ideations or grandiosity; denies SI/HI/VH/AH. Diagnostics Vital Signs (24Hr): Vital Signs - 24 hr 08/13/24 15:30 08/13/24 20:00 08/13/24 20:08 Temperature 98.7 F Pulse Rate 60 58 Respiratory Rate 16 Blood Pressure 103/56 L 95/50 L 89/54 L Pulse Oximetry 100 Oxygen Delivery Method Room Air 08/14/24 07:54 Temperature 97.3 F Pulse Rate 62 Respiratory Rate 16 Blood Pressure 105/62 Pulse Oximetry 99 Oxygen Delivery Method Room Air BMI result Body Mass Index 21.0 Labs 08/07/24 22:58 08/07/24 22:58 Imaging Radiology Impressions: ITS Impressions Cervical Spine CT 08/07/24 22:40 IMPRESSION: 1. No evidence of acute intracranial hemorrhage or edematous territorial infarction. 2. Mild to moderate nonspecific white matter changes. 3. No evidence of acute fracture or traumatic subluxation of the cervical spine. Electronically signed by: Zana De Leon DO 08/08/2024 12:[address] 08/07/24 22:52 IMPRESSION: 1. No evidence of acute intracranial hemorrhage or edematous territorial infarction. 2. Mild to moderate nonspecific white matter changes. 3. No evidence of acute fracture or traumatic subluxation of the cervical spine. Electronically signed by: Zana De Leon DO 08/08/2024 12:25 AM EDT Medications Medications Current Medications Acetaminophen (Acetaminophen 325 Mg Tablet) 650 mg PO Q6H PRN PRN Reason: Headache/Pain Mild Scale (1-3) Last Admin: 08/14/24 10:17 Dose: 650 mg Al Hydroxide/Mg Hydroxide (Magnesium Hydrox/Alum Hydrox 30 Ml Oral.Susp) 30 ml PO Q6H PRN PRN Reason: Heartburn/Nausea Clonidine HCl (Clonidine Hcl 0.1 Mg Tablet) 0.1 mg PO TID [facility]; Protocol Last Admin: 08/14/24 08:52 Dose: 0.1 mg Hydroxyzine HCl (Hydroxyzine Hcl 25 Mg Tablet) 25 mg PO Q6H PRN PRN Reason: Anxiety Last Admin: 08/12/24 17:51 Dose: 25 mg Ibuprofen (Ibuprofen 600 Mg Tablet) 600 mg PO Q8H PRN PRN Reason: Pain, Moderate(Pain Scale 4-6) Last Admin: 08/13/24 15:48 Dose: 600 mg Magnesium Hydroxide (Milk Of Magnesia 30 Ml Oral.Susp) 30 ml PO DAILY PRN PRN Reason: Constipation Methadone HCl (Methadone Hcl 20 Mg/2 Ml Oral.Conc) 105 mg PO DAILY [facility] Last Admin: 08/14/24 08:30 Dose: 105 mg Mirtazapine (Mirtazapine 15 Mg Tablet) 15 mg PO BEDTIME [facility] Last Admin: 08/13/24 20:06 Dose: 15 mg Multi-Ingred Cream/Lotion/Oil/Oint (Mineral Oil/Petrolatum,White 106 Gm Tube) 1 appl TOPICAL DAILY [facility]; Protocol Last Admin: 08/14/24 10:02 Dose: Not Given Nicotine (Nicotine 21 Mg Patch.Td24) 21 mg TRANSDERMA DAILY PRN PRN Reason: craving Nicotine Polacrilex (Nicotine Polacrilex 2 Mg Gum) 4 mg BUCCAL Q2H PRN PRN Reason: Nicotine Cravings Last Admin: 08/13/24 10:36 Dose: 4 mg Sertraline HCl (Sertraline Hcl 50 Mg Tablet) 50 mg PO DAILY [facility] Last Admin: 08/14/24 08:53 Dose: 50 mg Thiamine HCl (Thiamine Hcl 100 Mg Tablet) 100 mg PO DAILY [facility] Last Admin: 08/14/24 08:53 Dose: 100 mg Trazodone HCl (Trazodone Hcl 50 Mg Tablet) 50 mg PO BEDTIME MRX1 PRN PRN Reason: Insomnia Allergies Allergies Allergy/AdvReac Type Severity Reaction Status Date / Time No Known Allergies Allergy Verified 08/07/24 22:18 [No Known Allergies*] Assessment & Plan Assessment & Plan (1) MDD (major depressive disorder), recurrent episode: Status: Acute Code(s): F33.9 - Major depressive disorder, recurrent, unspecified (2) PTSD (post-traumatic stress disorder): Status: Acute Code(s): F43.10 - Post-traumatic stress disorder, unspecified (3) Opioid use disorder: Status: Acute Code(s): F11.90 - Opioid use, unspecified, uncomplicated (4) Cocaine use disorder: Status: Acute Code(s): F14.10 - Cocaine abuse, uncomplicated (5) Homelessness: Status: Acute Code(s): Z59.00 - Homelessness unspecified Plan Patient is a 38-year-old male with history of MDD, PTSD, opiate use disorder and cocaine use disorder who was brought in to the ER after being found slumped over on the street and reported suicidal ideation with plan to intentionally overdose. Plan: CV 15 minute safety checks Continue methadone Start: Mirtazapine 15 mg p.o. bedtime Clonidine 0.1 mg p.o. b.i.d. CIWA protocol Encourage groups Referral to outpatient prescriber and therapist Referral to substance abuse program Discharge planning 08/10: got 1 mg of ativan per CIWA since admission. not in EtOH withdrawal, DC ativan PRN and CIWA. start zoloft 50 mg daily. c/o sweats, anxiety; recent alcohol, cocaine, opioid use. 08/11: continue current mgmt. no requests or complaints. wound consult pending. 08/12: increase clonidine to 0.1 TID per pt request. otherwise continue current mgmt. 08/13: Active on unit. attending groups. Pt reports feeling anxious today; pt stated, my depression is getting lower . Pt reports he is interested in attending an outpatient substance abuse program when discharged. denies SI/HI/VH/AH. Pt reports sleeping well. Continue current tx plan. 08/14: Pt reports feeling okay today; continues to report anxiety and depression. per nursing, slept 7 hours. denies SI/HI/VH/AH. Hospitalist consult placed for left arm abbess; pt reports discomfort. Patient educated on: diagnosis and medication risk/benefits Informed Consent: understands Reason for continued inpatient stay Substantial Risk for: med/psych decompensation Time Spent With Patient Time: Total time managing care of this patient today _20___ minutes.
[2024-08-14] MEDS: hydrOXYzine HCL 25 MG TABLET PO (11:43)
--- NOTE | 2024-08-14 11:50 | PM.EVENT ---
Event Note Date of Service: 08/14/24 Event Note: Patient is a 38-year-old male with a PMH significant for polysubstance use disorder, IVDU, and depression who was admitted to [facility] psychiatry unit for increasing depression and vague SI. Medical consult for evaluation of painful abscess left forearm. Patient states that abscess formed overnight and is painful. Reports injects in multiple areas his body, including anterior aspect forearm. Has a previous history abscess requiring drainage on wrist distal to current abscess formation. Denies fever, chills, nausea, vomiting. Denies any other acute medical complaints. Physical exam reveals large, 5 cm area of fluctuance just distal to elbow with erythema, warmth, and tenderness. As pictured below. Will start on doxycycline 100 mg b.i.d. x7 days, please take with meals. Will consult General surgery for bedside drainage. Time Spent With Patient Time: Total time managing care of this patient today ____ minutes.
[2024-08-14] MEDS: Doxycycline Monohydrate 100 MG CAPSULE PO ×2 (12:33→20:47)
[2024-08-14 15:34] VITALS: BP 100/58
[2024-08-14] MEDS: Lidocaine HCl 1 % 20 ML VIAL SUBCUT (16:34)
[2024-08-14 16:36] VITALS: BP 109/66
--- NOTE | 2024-08-14 16:53 | P.CONGS_ITS ---
History of Present Illness Consult details Consult date: 08/14/24 Narrative: 38-year-old male referred because of a left arm swelling and redness. He had been admitted to the psych unit since 08/09/2024 because of loss of consciousness with suicidal ideations. He has a known history of polysubstance abuse, PTSD, and major depressive disorder. He admits to injecting cocaine his arm. He states that the last time he did this was over a week ago. However, he says that he had noticed an area on his left arm to be very swollen, tender and red for the past day. He denies any fever or chills. He does admit that he has used this exact area for injections of drugs in the past. Review of Systems 2 Constitutional: Constitutional: Denies chills and Denies fever(s) Cardiovascular: Cardiovascular: Denies chest pain Respiratory: Respiratory: Denies cough Gastrointestinal: Gastrointestinal: Denies abdominal pain Genitourinary: Genitourinary: Denies difficulty urinating Psychiatric: Psychiatric: Reports depression and Reports suicidal ideation [facility] Past Medical History Medical History (Updated 08/14/24 @ 16:57 by Paras Foster MD) Abscess of left forearm Polysubstance abuse Anxiety and depression Social History Social History Household Members: None Housing: Homeless Do you presently have visiting nurse or other home services: No Unable to assess alcohol history related to: Unknown Patient Tobacco Use Status: Current everyday Tobacco user Tobacco use type: Cigarette Cigarette Packs Per Day: 0.5 Cigarettes Per Day: 10.0 Smoked in Last 30 Days: Yes e-Cigarette/Vaping Use: Never Used Patient Interested in Nicotine Replacement: Yes Patient Given Instructions on How to Stop Smoking: Yes Date Education Initiated: 08/09/24 Second Hand Smoke Exposure: No Use of substances other than those prescribed or required for medical reasons: Yes Substance Use Type: Crack/Cocaine, IV Drugs, Marijuana and Opiates Substance Use Frequency: Daily Last Used Substance: Just Prior to Admission Currently Displaying Signs/Symptoms of Drug Intoxication Withdrawal: No Any prior treatment program specific to substance use: Yes (prior detox and methadone services) Have you been hit, kicked, punched, or otherwise hurt by someone within the past year? If so, by whom?: No Do you feel safe in your current relationship?: No Current Relationship Is there a partner from a previous relationship who is making you feel unsafe now?: No Are you made to feel afraid or neglected: No Advance Directives: No Advance Directives Information Provided: No Do you have thoughts of harming others: None Do you have a plan to hurt others: No Plan Recently lost weight without trying: Yes How much weight loss: Unsure Eating poorly because of decreased appetite: Yes Nutrition screen score: 5 Nutrition Risks: No Nutritional Risk Poor oral hygiene: Yes service: No Sexual orientation: Straight/Heterosexual Meds Allergies Allergy/AdvReac Type Severity Reaction Status Date / Time No Known Allergies Allergy Verified 08/07/24 22:18 [No Known Allergies*] Active Medications: Current Medications Acetaminophen (Acetaminophen 325 Mg Tablet) 650 mg PO Q6H PRN PRN Reason: Headache/Pain Mild Scale (1-3) Last Admin: 08/14/24 10:17 Dose: 650 mg Al Hydroxide/Mg Hydroxide (Magnesium Hydrox/Alum Hydrox 30 Ml Oral.Susp) 30 ml PO Q6H PRN PRN Reason: Heartburn/Nausea Clonidine HCl (Clonidine Hcl 0.1 Mg Tablet) 0.1 mg PO TID [facility]; Protocol Last Admin: 08/14/24 16:36 Dose: 0.1 mg Doxycycline Monohydrate (Doxycycline Monohydrate 100 Mg Capsule) 100 mg PO BID [facility] Last Admin: 08/14/24 12:33 Dose: 100 mg Hydroxyzine HCl (Hydroxyzine Hcl 25 Mg Tablet) 25 mg PO Q6H PRN PRN Reason: Anxiety Last Admin: 08/14/24 11:43 Dose: 25 mg Ibuprofen (Ibuprofen 600 Mg Tablet) 600 mg PO Q8H PRN PRN Reason: Pain, Moderate(Pain Scale 4-6) Last Admin: 08/13/24 15:48 Dose: 600 mg Magnesium Hydroxide (Milk Of Magnesia 30 Ml Oral.Susp) 30 ml PO DAILY PRN PRN Reason: Constipation Methadone HCl (Methadone Hcl 20 Mg/2 Ml Oral.Conc) 105 mg PO DAILY [facility] Last Admin: 08/14/24 08:30 Dose: 105 mg Mirtazapine (Mirtazapine 15 Mg Tablet) 15 mg PO BEDTIME [facility] Last Admin: 08/13/24 20:06 Dose: 15 mg Multi-Ingred Cream/Lotion/Oil/Oint (Mineral Oil/Petrolatum,White 106 Gm Tube) 1 appl TOPICAL DAILY [facility]; Protocol Last Admin: 08/14/24 10:02 Dose: Not Given Nicotine (Nicotine 21 Mg Patch.Td24) 21 mg TRANSDERMA DAILY PRN PRN Reason: craving Nicotine Polacrilex (Nicotine Polacrilex 2 Mg Gum) 4 mg BUCCAL Q2H PRN PRN Reason: Nicotine Cravings Last Admin: 08/13/24 10:36 Dose: 4 mg Sertraline HCl (Sertraline Hcl 50 Mg Tablet) 50 mg PO DAILY [facility] Last Admin: 08/14/24 08:53 Dose: 50 mg Thiamine HCl (Thiamine Hcl 100 Mg Tablet) 100 mg PO DAILY [facility] Last Admin: 08/14/24 08:53 Dose: 100 mg Trazodone HCl (Trazodone Hcl 50 Mg Tablet) 50 mg PO BEDTIME MRX1 PRN PRN Reason: Insomnia Home Medications ?Medication ?Instructions ?Recorded ?Confirmed ?Last Taken ?Type methadone 10 mg/mL oral 105 mg PO DAILY 08/08/24 08/08/24 08/07/24 07:15 History concentrate (Methadone Intensol) Physical Exam 2 Vital Signs: Vital Signs: Last Vital Signs Temp 97.3 F 08/14/24 07:54 Pulse 62 08/14/24 07:54 Resp 16 08/14/24 07:54 BP 109/66 08/14/24 16:36 Pulse Ox 99 08/14/24 07:54 O2 Del Method Room Air 08/14/24 07:54 BMI result Body Mass Index 21.0 Const: Other: Answers questions General: comfortable and no acute distress Resp: Effort & Inspection: normal respiratory effort Cardio: Rate: regular rate GI: Palpation (GI): Soft to palpation Extrem: Other: Left for arm on the anterior aspect note of a fluctuant mass, about 4 by 3 cm, with redness and tenderness consistent with an abscess Results Labs 08/07/24 22:58 08/07/24 22:58 Labs: Urine 08/09/24 Range/Units 16:06 Urine Color Yellow Urine Appearance Turbid Urine pH 8.5 (5.0-9.0) Ur Specific [place] 1.020 (1.005-1.025) Urine Protein Negative (Neg-Trace) mg/dL Urine Glucose (UA) Negative (Negative) mg/dL All other labs normal. Assessment and Plan (1) Abscess of left forearm: Status: Acute Plan He has what appears to be a large abscess on the left forearm. I explained to him it would be best to proceed with I&D under local anesthesia. I explained to him the technique of this procedure. I reviewed the risks, benefits, and alternatives. He had given consent. I&D was done under local anesthesia in the treatment room at the [facility] unit. Large amounts of pus was evacuated. He tolerated procedure well. I applied dry dressings Dressing changes should be done every day at least once a day. This can be done with gauze and the area can be wrapped with a Oxana roll. I advised him to avoid self injections again down the line especially with dirty needles. He can take Tylenol and ibuprofen p.r.n. for pain. I discussed wound care with him as well as with the nurse of the unit. Procedures Date of Service Date of Service: 08/14/24 Abscess I/D Site: upper extremity Side (if applicable): left Anesthetic used: lidocaine 1% Technique: incised with #11 blade Irrigation: No Packing used?: none Additional comments: Large amounts of pus drained; I bluntly dissected the abscess cavity picture that loculations have been broken down.
[2024-08-14] MEDS: Ibuprofen 600 MG TABLET PO (16:55)
[2024-08-14 19:35] VITALS: BP 100/57; PULSE 52; RESP 16; TEMP 36.9; O2SAT 100
[2024-08-14] MEDS: Mirtazapine 15 MG TABLET PO (20:47)
[2024-08-15 07:00] VITALS: BMI 22.9
[2024-08-15 08:00] VITALS: BP 114/65; PULSE 64; RESP 16
[2024-08-15] MEDS: methADONE HCl 20 MG/2 ML ORAL.CONC 105 MG PO (08:06)
[2024-08-15] MEDS: Thiamine HCL 100 MG TABLET PO (08:42)
[2024-08-15] MEDS: Sertraline HCL 50 MG TABLET PO (08:42)
[2024-08-15] MEDS: Doxycycline Monohydrate 100 MG CAPSULE PO ×2 (08:42→20:52)
[2024-08-15] MEDS: cloNIDine HCL 0.1 MG TABLET PO ×3 (08:43→20:53)
--- NOTE | 2024-08-15 09:29 | HO.PSYCHPN ---
Subjective Subjective Date of Service: 08/15/24 Reason For Visit: fell Head strike, LOC +c collar Subjective Notes: Conditional Voluntary Interim History: Reviewed with Dr. Doe. Pt reports feeling alright today;pt reports he is considering either returning to his grandmothers house or going to a CSS. denies SI/HI/VH/AH. Pt was seen by surgery for left arm abbess; please see note. Medication Compliance: Yes Side effects from medications: No Attending Groups: Yes Review of Systems Constitutional: Reports as per HPI Eyes: Reports as per HPI Reports as per HPI Cardiovascular: Reports as per HPI Respiratory: Reports as per HPI Gastrointestinal: Reports as per HPI Genitourinary: Reports as per HPI Musculoskeletal: Reports as per HPI Skin/Breast: Reports as per HPI Reports as per HPI Psychiatric: Reports as per HPI Endocrine: Reports as per HPI Hematologic/Lymphatic: Reports as per HPI Allergic/Immunologic: Reports as per HPI Mental Status Exam Mental Status Exam Narrative: Pt is alert and oriented; behavior is cooperative and calm; dressed in casual attire; mood is described as alright ; eye contact appropriate; Speech is normal rate, volume and not pressured; thought process is organized and goal directed; Thought content is on tx; otherwise pertinent to relevant topics and without any delusional content, paranoid ideations or grandiosity; denies SI/HI/VH/AH. Diagnostics Vital Signs (24Hr): Vital Signs - 24 hr 08/14/24 15:34 08/14/24 16:36 08/14/24 19:35 Temperature 98.4 F Pulse Rate 52 Respiratory Rate 16 Blood Pressure 100/58 L 109/66 100/57 L Pulse Oximetry 100 Oxygen Delivery Method Room Air 08/15/24 08:00 Temperature Pulse Rate 64 Respiratory Rate 16 Blood Pressure 114/65 Pulse Oximetry Oxygen Delivery Method BMI result Body Mass Index 21.0 Labs 08/07/24 22:58 08/07/24 22:58 Imaging Radiology Impressions: ITS Impressions Cervical Spine CT 08/07/24 22:40 IMPRESSION: 1. No evidence of acute intracranial hemorrhage or edematous territorial infarction. 2. Mild to moderate nonspecific white matter changes. 3. No evidence of acute fracture or traumatic subluxation of the cervical spine. Electronically signed by: Zana De Leon DO 08/08/2024 12:25 AM EDT RP Head CT 08/07/24 22:52 IMPRESSION: 1. No evidence of acute intracranial hemorrhage or edematous territorial infarction. 2. Mild to moderate nonspecific white matter changes. 3. No evidence of acute fracture or traumatic subluxation of the cervical spine. Electronically signed by: Zana De Leon DO 08/08/2024 12:25 AM EDT RP Medications Medications Current Medications Acetaminophen (Acetaminophen 325 Mg Tablet) 650 mg PO Q6H PRN PRN Reason: Headache/Pain Mild Scale (1-3) Last Admin: 08/14/24 10:17 Dose: 650 mg Al Hydroxide/Mg Hydroxide (Magnesium Hydrox/Alum Hydrox 30 Ml Oral.Susp) 30 ml PO Q6H PRN PRN Reason: Heartburn/Nausea Clonidine HCl (Clonidine Hcl 0.1 Mg Tablet) 0.1 mg PO TID [facility]; Protocol Last Admin: 08/15/24 08:43 Dose: 0.1 mg Doxycycline Monohydrate (Doxycycline Monohydrate 100 Mg Capsule) 100 mg PO BID [facility] Last Admin: 08/15/24 08:42 Dose: 100 mg Hydroxyzine HCl (Hydroxyzine Hcl 25 Mg Tablet) 25 mg PO Q6H PRN PRN Reason: Anxiety Last Admin: 08/14/24 11:43 Dose: 25 mg Ibuprofen (Ibuprofen 600 Mg Tablet) 600 mg PO Q8H PRN PRN Reason: Pain, Moderate(Pain Scale 4-6) Last Admin: 08/14/24 16:55 Dose: 600 mg Magnesium Hydroxide (Milk Of Magnesia 30 Ml Oral.Susp) 30 ml PO DAILY PRN PRN Reason: Constipation Methadone HCl (Methadone Hcl 20 Mg/2 Ml Oral.Conc) 105 mg PO DAILY [facility] Last Admin: 08/15/24 08:06 Dose: 105 mg Mirtazapine (Mirtazapine 15 Mg Tablet) 15 mg PO BEDTIME [facility] Last Admin: 08/14/24 20:47 Dose: 15 mg Multi-Ingred Cream/Lotion/Oil/Oint (Mineral Oil/Petrolatum,White 106 Gm Tube) 1 appl TOPICAL DAILY [facility]; Protocol Last Admin: 08/15/24 08:56 Dose: Not Given Nicotine (Nicotine 21 Mg Patch.Td24) 21 mg TRANSDERMA DAILY PRN PRN Reason: craving Nicotine Polacrilex (Nicotine Polacrilex 2 Mg Gum) 4 mg BUCCAL Q2H PRN PRN Reason: Nicotine Cravings Last Admin: 08/13/24 10:36 Dose: 4 mg Sertraline HCl (Sertraline Hcl 50 Mg Tablet) 50 mg PO DAILY [facility] Last Admin: 08/15/24 08:42 Dose: 50 mg Thiamine HCl (Thiamine Hcl 100 Mg Tablet) 100 mg PO DAILY [facility] Last Admin: 08/15/24 08:42 Dose: 100 mg Trazodone HCl (Trazodone Hcl 50 Mg Tablet) 50 mg PO BEDTIME MRX1 PRN PRN Reason: Insomnia Allergies Allergies Allergy/AdvReac Type Severity Reaction Status Date / Time No Known Allergies Allergy Verified 08/07/24 22:18 [No Known Allergies*] Assessment & Plan Assessment & Plan (1) MDD (major depressive disorder), recurrent episode: Status: Acute Code(s): F33.9 - Major depressive disorder, recurrent, unspecified (2) PTSD (post-traumatic stress disorder): Status: Acute Code(s): F43.10 - Post-traumatic stress disorder, unspecified (3) Cocaine use disorder: Status: Acute Code(s): F14.10 - Cocaine abuse, uncomplicated (4) Opioid use disorder: Status: Acute Code(s): F11.90 - Opioid use, unspecified, uncomplicated (5) Homelessness: Status: Acute Code(s): Z59.00 - Homelessness unspecified Plan Patient is a 38-year-old male with history of MDD, PTSD, opiate use disorder and cocaine use disorder who was brought in to the ER after being found slumped over on the street and reported suicidal ideation with plan to intentionally overdose. Plan: CV 15 minute safety checks Continue methadone Start: Mirtazapine 15 mg p.o. bedtime Clonidine 0.1 mg p.o. b.i.d. CIWA protocol Encourage groups Referral to outpatient prescriber and therapist Referral to substance abuse program Discharge planning 08/10: got 1 mg of ativan per CIWA since admission. not in EtOH withdrawal, DC ativan PRN and CIWA. start zoloft 50 mg daily. c/o sweats, anxiety; recent alcohol, cocaine, opioid use. 08/11: continue current mgmt. no requests or complaints. wound consult pending. 08/12: increase clonidine to 0.1 TID per pt request. otherwise continue current mgmt. 08/13: Active on unit. attending groups. Pt reports feeling anxious today; pt stated, my depression is getting lower . Pt reports he is interested in attending an outpatient substance abuse program when discharged. denies SI/HI/VH/AH. Pt reports sleeping well. Continue current tx plan. 08/14: Pt reports feeling okay today; continues to report anxiety and depression. per nursing, slept 7 hours. denies SI/HI/VH/AH. Hospitalist consult placed for left arm abbess; pt reports discomfort. 08/15: Pt reports feeling alright today;pt reports he is considering either returning to his grandmothers house or going to a CSS. denies SI/HI/VH/AH. Pt was seen by surgery for left arm abbess; please see note. Patient educated on: diagnosis, medication risk/benefits, substance abuse and therapeutic strategies Reason for continued inpatient stay Substantial Risk for: med/psych decompensation Time Spent With Patient Time: Total time managing care of this patient today _20___ minutes.
[2024-08-15 14:59] VITALS: BP 105/59; PULSE 57
[2024-08-15 20:00] VITALS: BP 107/57; PULSE 50; RESP 16; TEMP 36.9; O2SAT 97
[2024-08-15] MEDS: Mirtazapine 15 MG TABLET PO (20:52)
[2024-08-16] MEDS: methADONE HCl 20 MG/2 ML ORAL.CONC 105 MG PO (07:52)
[2024-08-16 08:00] VITALS: BP 108/62; PULSE 55; RESP 16; TEMP 36.4; O2SAT 100
[2024-08-16 08:36] VITALS: BP 108/62; PULSE 55; RESP 16; TEMP 36.4; O2SAT 100
[2024-08-16] MEDS: Sertraline HCL 50 MG TABLET PO (08:36)
[2024-08-16] MEDS: Thiamine HCL 100 MG TABLET PO (08:37)
[2024-08-16] MEDS: Doxycycline Monohydrate 100 MG CAPSULE PO ×2 (08:37→22:00)
[2024-08-16 09:05] VITALS: BP 110/59; PULSE 60
[2024-08-16 09:25] VITALS: BP 110/59
[2024-08-16] MEDS: cloNIDine HCL 0.1 MG TABLET PO ×2 (09:25→21:59)
--- NOTE | 2024-08-16 09:26 | P.PNPSI_ITS ---
Subjective Subjective Date of Service: 08/16/24 Reason For Visit: fell Head strike, LOC +c collar Subjective Notes: Conditional Voluntary Interim History: Reviewed with Dr. Doe. Pt reports feeling okay today; he reports improved sleep. denies SI/HI/VH/AH. pt requested to be started on baclofen for cocaine dependence; risks/benefits reviewed. Start: Baclofen 10mg PO BID Planning for discharge on Monday if pt continues to improve; pt aware and agrees. Medication Compliance: Yes Side effects from medications: No Attending Groups: Yes Review of Systems Constitutional: Reports as per HPI Eyes: Reports as per HPI Reports as per HPI Cardiovascular: Reports as per HPI Respiratory: Reports as per HPI Gastrointestinal: Reports as per HPI Genitourinary: Reports as per HPI Musculoskeletal: Reports as per HPI Skin/Breast: Reports as per HPI Reports as per HPI Psychiatric: Reports as per HPI Endocrine: Reports as per HPI Hematologic/Lymphatic: Reports as per HPI Allergic/Immunologic: Reports as per HPI Mental Status Exam Mental Status Exam Narrative: Pt is alert and oriented; behavior is cooperative and calm; dressed in casual attire; mood is described as okay ; eye contact appropriate; Speech is normal rate, volume and not pressured; thought process is organized and goal directed; Thought content is on tx; otherwise pertinent to relevant topics and without any delusional content, paranoid ideations or grandiosity; denies SI/HI/VH/AH. Diagnostics Vital Signs (24Hr): Vital Signs - 24 hr 08/15/24 14:59 08/15/24 20:00 08/16/24 08:00 Temperature 98.5 F 97.5 F Pulse Rate 57 50 55 Respiratory Rate 16 16 Blood Pressure 105/59 L 107/57 L 108/62 Pulse Oximetry 97 100 Oxygen Delivery Method Room Air Room Air 08/16/24 08:36 Temperature 97.5 F Pulse Rate 55 Respiratory Rate 16 Blood Pressure 108/62 Pulse Oximetry 100 Oxygen Delivery Method Room Air BMI result Body Mass Index 22.9 Labs 08/07/24 22:58 08/07/24 22:58 Imaging Radiology Impressions: ITS Impressions Cervical Spine CT 08/07/24 22:40 IMPRESSION: 1. No evidence of acute intracranial hemorrhage or edematous territorial infarction. 2. Mild to moderate nonspecific white matter changes. 3. No evidence of acute fracture or traumatic subluxation of the cervical spine. Electronically signed by: Zana De Leon DO 08/08/2024 12:25 AM EDT RP Head CT 08/07/24 22:52 IMPRESSION: 1. No evidence of acute intracranial hemorrhage or edematous territorial infarction. 2. Mild to moderate nonspecific white matter changes. 3. No evidence of acute fracture or traumatic subluxation of the cervical spine. Electronically signed by: Zana De Leon DO 08/08/2024 12:25 AM EDT RP Medications Medications Current Medications Acetaminophen (Acetaminophen 325 Mg Tablet) 650 mg PO Q6H PRN PRN Reason: Headache/Pain Mild Scale (1-3) Last Admin: 08/14/24 10:17 Dose: 650 mg Al Hydroxide/Mg Hydroxide (Magnesium Hydrox/Alum Hydrox 30 Ml Oral.Susp) 30 ml PO Q6H PRN PRN Reason: Heartburn/Nausea Clonidine HCl (Clonidine Hcl 0.1 Mg Tablet) 0.1 mg PO TID [facility]; Protocol Last Admin: 08/15/24 20:53 Dose: 0.1 mg Doxycycline Monohydrate (Doxycycline Monohydrate 100 Mg Capsule) 100 mg PO BID [facility] Last Admin: 08/16/24 08:37 Dose: 100 mg Hydroxyzine HCl (Hydroxyzine Hcl 25 Mg Tablet) 25 mg PO Q6H PRN PRN Reason: Anxiety Last Admin: 08/14/24 11:43 Dose: 25 mg Ibuprofen (Ibuprofen 600 Mg Tablet) 600 mg PO Q8H PRN PRN Reason: Pain, Moderate(Pain Scale 4-6) Last Admin: 08/14/24 16:55 Dose: 600 mg Magnesium Hydroxide (Milk Of Magnesia 30 Ml Oral.Susp) 30 ml PO DAILY PRN PRN Reason: Constipation Methadone HCl (Methadone Hcl 20 Mg/2 Ml Oral.Conc) 105 mg PO DAILY [facility] Last Admin: 08/16/24 07:52 Dose: 105 mg Mirtazapine (Mirtazapine 15 Mg Tablet) 15 mg PO BEDTIME [facility] Last Admin: 08/15/24 20:52 Dose: 15 mg Multi-Ingred Cream/Lotion/Oil/Oint (Mineral Oil/Petrolatum,White 106 Gm Tube) 1 appl TOPICAL DAILY [facility]; Protocol Last Admin: 08/15/24 08:56 Dose: Not Given Nicotine (Nicotine 21 Mg Patch.Td24) 21 mg TRANSDERMA DAILY PRN PRN Reason: craving Nicotine Polacrilex (Nicotine Polacrilex 2 Mg Gum) 4 mg BUCCAL Q2H PRN PRN Reason: Nicotine Cravings Last Admin: 08/13/24 10:36 Dose: 4 mg Sertraline HCl (Sertraline Hcl 50 Mg Tablet) 50 mg PO DAILY [facility] Last Admin: 08/16/24 08:36 Dose: 50 mg Thiamine HCl (Thiamine Hcl 100 Mg Tablet) 100 mg PO DAILY [facility] Last Admin: 08/16/24 08:37 Dose: 100 mg Trazodone HCl (Trazodone Hcl 50 Mg Tablet) 50 mg PO BEDTIME MRX1 PRN PRN Reason: Insomnia Allergies Allergies Allergy/AdvReac Type Severity Reaction Status Date / Time No Known Allergies Allergy Verified 08/07/24 22:18 [No Known Allergies*] Assessment & Plan Assessment & Plan (1) MDD (major depressive disorder), recurrent episode: Status: Acute Code(s): F33.9 - Major depressive disorder, recurrent, unspecified (2) PTSD (post-traumatic stress disorder): Status: Acute Code(s): F43.10 - Post-traumatic stress disorder, unspecified (3) Cocaine use disorder: Status: Acute Code(s): F14.10 - Cocaine abuse, uncomplicated (4) Opioid use disorder: Status: Acute Code(s): F11.90 - Opioid use, unspecified, uncomplicated (5) Homelessness: Status: Acute Code(s): Z59.00 - Homelessness unspecified Plan Patient is a 38-year-old male with history of MDD, PTSD, opiate use disorder and cocaine use disorder who was brought in to the ER after being found slumped over on the street and reported suicidal ideation with plan to intentionally overdose. Plan: CV 15 minute safety checks Continue methadone Start: Mirtazapine 15 mg p.o. bedtime Clonidine 0.1 mg p.o. b.i.d. CIWA protocol Encourage groups Referral to outpatient prescriber and therapist Referral to substance abuse program Discharge planning 08/10: got 1 mg of ativan per CIWA since admission. not in EtOH withdrawal, DC ativan PRN and CIWA. start zoloft 50 mg daily. c/o sweats, anxiety; recent alcohol, cocaine, opioid use. 08/11: continue current mgmt. no requests or complaints. wound consult pending. 08/12: increase clonidine to 0.1 TID per pt request. otherwise continue current mgmt. 08/13: Active on unit. attending groups. Pt reports feeling anxious today; pt stated, my depression is getting lower . Pt reports he is interested in attending an outpatient substance abuse program when discharged. denies SI/HI/VH/AH. Pt reports sleeping well. Continue current tx plan. 08/14: Pt reports feeling okay today; continues to report anxiety and depression. per nursing, slept 7 hours. denies SI/HI/VH/AH. Hospitalist consult placed for left arm abbess; pt reports discomfort. 08/15: Pt reports feeling alright today;pt reports he is considering either returning to his grandmothers house or going to a CSS. denies SI/HI/VH/AH. Pt was seen by surgery for left arm abbess; please see note. 08/16: Pt reports feeling okay today; he reports improved sleep. denies SI/HI/VH/AH. pt requested to be started on baclofen for cocaine dependence; risks/benefits reviewed. Start: Baclofen 10mg PO BID Planning for discharge on Monday if pt continues to improve; pt aware and agrees. Patient educated on: diagnosis, medication risk/benefits, substance abuse and therapeutic strategies Reason for continued inpatient stay Substantial Risk for: med/psych decompensation Time Spent With Patient Time: Total time managing care of this patient today _20___ minutes.
[2024-08-16] MEDS: Ibuprofen 600 MG TABLET PO (09:59)
[2024-08-16 10:03] VITALS: BP 127/72; PULSE 58
[2024-08-16] MEDS: Baclofen 10 MG TABLET PO ×2 (12:17→21:59)
[2024-08-16 20:00] VITALS: BP 97/52; PULSE 61; RESP 18; TEMP 36.6; O2SAT 100
[2024-08-16] MEDS: hydrOXYzine HCL 25 MG TABLET PO (21:59)
[2024-08-16] MEDS: Mirtazapine 15 MG TABLET PO (22:00)
[2024-08-17 08:07] VITALS: BP 103/65; PULSE 59; RESP 16; TEMP 37.4; O2SAT 100
--- NOTE | 2024-08-17 08:09 | PC.NURSE ---
Pt had temp of 99.3 this morning. This poem writer texted Dr. Nolasco via [employer] to provide this information. He stated that he will be here in 1 hour.
[2024-08-17] MEDS: methADONE HCl 20 MG/2 ML ORAL.CONC 105 MG PO (08:24)
--- NOTE | 2024-08-17 08:51 | P.PNPSI_ITS ---
Subjective Subjective Date of Service: 08/17/24 Reason For Visit: fell Head strike, LOC +c collar Interim History: Pt seen, discussed with team. Pt expressed concern with possible abscess of forearm. T 99.3 per team. Discussed hospitalist consult which he agrees and will participate in. No adverse effects from Baclofen initiation. States he is planning discharge for 08/21. Denies SI,HI, AH, VH. No sx of psychosis, pramod noted. Medication Compliance: Yes Side effects from medications: No Attending Groups: Intermittent Review of Systems as noted Medical Review of Systems: unchanged Review of Systems Review of Systems T 99.3 ?Abscess of forearm Mental Status Exam Mental Status Exam Narrative: Alert, oriented, calm, watching TV. Well engaged with focus on his care. Speech soft, normal rate, rhythm. Thought process and content are organized and without delusions, paranoia, perceptual alteraltions. Denies SI/HI. Mood/Affect constricted. Diagnostics Vital Signs (24Hr): Vital Signs - 24 hr 08/16/24 09:05 08/16/24 09:25 08/16/24 10:03 Temperature Pulse Rate 60 58 Respiratory Rate Blood Pressure 110/59 L 110/59 L 127/72 Pulse Oximetry Oxygen Delivery Method 08/16/24 20:00 08/17/24 08:07 Temperature 97.9 F 99.3 F Pulse Rate 61 59 Respiratory Rate 18 16 Blood Pressure 97/52 L 103/65 Pulse Oximetry 100 100 Oxygen Delivery Method Room Air Room Air BMI result Body Mass Index 22.9 Labs 08/07/24 22:58 08/07/24 22:58 Imaging Radiology Impressions: ITS Impressions Cervical Spine CT 08/07/24 22:40 IMPRESSION: 1. No evidence of acute intracranial hemorrhage or edematous territorial infarction. 2. Mild to moderate nonspecific white matter changes. 3. No evidence of acute fracture or traumatic subluxation of the cervical spine. Electronically signed by: Zana De Leon DO 08/08/2024 12:[address] 08/07/24 22:52 IMPRESSION: 1. No evidence of acute intracranial hemorrhage or edematous territorial infarction. 2. Mild to moderate nonspecific white matter changes. 3. No evidence of acute fracture or traumatic subluxation of the cervical spine. Electronically signed by: Zana De Leon DO 08/08/2024 12:25 AM EDT RP Medications Medications Current Medications Acetaminophen (Acetaminophen 325 Mg Tablet) 650 mg PO Q6H PRN PRN Reason: Headache/Pain Mild Scale (1-3) Last Admin: 08/14/24 10:17 Dose: 650 mg Al Hydroxide/Mg Hydroxide (Magnesium Hydrox/Alum Hydrox 30 Ml Oral.Susp) 30 ml PO Q6H PRN PRN Reason: Heartburn/Nausea Baclofen (Baclofen 10 Mg Tablet) 10 mg PO BID [facility] Last Admin: 08/16/24 21:59 Dose: 10 mg Clonidine HCl (Clonidine Hcl 0.1 Mg Tablet) 0.1 mg PO BID [facility]; Protocol Last Admin: 08/16/24 21:59 Dose: 0.1 mg Doxycycline Monohydrate (Doxycycline Monohydrate 100 Mg Capsule) 100 mg PO BID [facility] Last Admin: 08/16/24 22:00 Dose: 100 mg Hydroxyzine HCl (Hydroxyzine Hcl 25 Mg Tablet) 25 mg PO Q6H PRN PRN Reason: Anxiety Last Admin: 08/16/24 21:59 Dose: 25 mg Ibuprofen (Ibuprofen 600 Mg Tablet) 600 mg PO Q8H PRN PRN Reason: Pain, Moderate(Pain Scale 4-6) Last Admin: 08/16/24 09:59 Dose: 600 mg Magnesium Hydroxide (Milk Of Magnesia 30 Ml Oral.Susp) 30 ml PO DAILY PRN PRN Reason: Constipation Methadone HCl (Methadone Hcl 20 Mg/2 Ml Oral.Conc) 105 mg PO DAILY [facility] Last Admin: 08/17/24 08:24 Dose: 105 mg Mirtazapine (Mirtazapine 15 Mg Tablet) 15 mg PO BEDTIME [facility] Last Admin: 08/16/24 22:00 Dose: 15 mg Multi-Ingred Cream/Lotion/Oil/Oint (Mineral Oil/Petrolatum,White 106 Gm Tube) 1 appl TOPICAL DAILY [facility]; Protocol Last Admin: 08/16/24 09:29 Dose: Not Given Nicotine (Nicotine 21 Mg Patch.Td24) 21 mg TRANSDERMA DAILY PRN PRN Reason: craving Nicotine Polacrilex (Nicotine Polacrilex 2 Mg Gum) 4 mg BUCCAL Q2H PRN PRN Reason: Nicotine Cravings Last Admin: 08/13/24 10:36 Dose: 4 mg Sertraline HCl (Sertraline Hcl 50 Mg Tablet) 50 mg PO DAILY [facility] Last Admin: 08/16/24 08:36 Dose: 50 mg Thiamine HCl (Thiamine Hcl 100 Mg Tablet) 100 mg PO DAILY [facility] Last Admin: 08/16/24 08:37 Dose: 100 mg Trazodone HCl (Trazodone Hcl 50 Mg Tablet) 50 mg PO BEDTIME MRX1 PRN PRN Reason: Insomnia Allergies Allergies Allergy/AdvReac Type Severity Reaction Status Date / Time No Known Allergies Allergy Verified 08/07/24 22:18 [No Known Allergies*] Assessment & Plan Assessment & Plan (1) MDD (major depressive disorder), recurrent episode: Status: Acute Code(s): F33.9 - Major depressive disorder, recurrent, unspecified (2) PTSD (post-traumatic stress disorder): Status: Acute Code(s): F43.10 - Post-traumatic stress disorder, unspecified (3) Cocaine use disorder: Status: Acute Code(s): F14.10 - Cocaine abuse, uncomplicated (4) Opioid use disorder: Status: Acute Code(s): F11.90 - Opioid use, unspecified, uncomplicated (5) Homelessness: Status: Acute Code(s): Z59.00 - Homelessness unspecified Plan Patient is a 38-year-old male with history of MDD, PTSD, opiate use disorder and cocaine use disorder who was brought in to the ER after being found slumped over on the street and reported suicidal ideation with plan to intentionally overdose. Plan: CV 15 minute safety checks Continue methadone Start: Mirtazapine 15 mg p.o. bedtime Clonidine 0.1 mg p.o. b.i.d. CIWA protocol Encourage groups Referral to outpatient prescriber and therapist Referral to substance abuse program Discharge planning 08/10: got 1 mg of ativan per CIWA since admission. not in EtOH withdrawal, DC ativan PRN and CIWA. start zoloft 50 mg daily. c/o sweats, anxiety; recent alcohol, cocaine, opioid use. 08/11: continue current mgmt. no requests or complaints. wound consult pending. 08/12: increase clonidine to 0.1 TID per pt request. otherwise continue current mgmt. 08/13: Active on unit. attending groups. Pt reports feeling anxious today; pt stated, my depression is getting lower . Pt reports he is interested in attending an outpatient substance abuse program when discharged. denies SI/HI/VH/AH. Pt reports sleeping well. Continue current tx plan. 08/14: Pt reports feeling okay today; continues to report anxiety and depression. per nursing, slept 7 hours. denies SI/HI/VH/AH. Hospitalist consult placed for left arm abbess; pt reports discomfort. 08/15: Pt reports feeling alright today;pt reports he is considering either returning to his grandmothers house or going to a [facility]. denies SI/HI/VH/AH. Pt was seen by surgery for left arm abbess; please see note. 08/16: Pt reports feeling okay today; he reports improved sleep. denies SI/HI/VH/AH. pt requested to be started on baclofen for cocaine dependence; risks/benefits reviewed. Start: Baclofen 10mg PO BID Planning for discharge on Monday if pt continues to improve; pt aware and agrees. 08/17: Looking to discharge on 08/19. Agrees to hospitalist consult for ?abscess evaluation. T 99.3 today. Denies SI/HI/AH/VH. Focused today on his treatment plan. Patient educated on: therapeutic strategies Reason for continued inpatient stay Substantial Risk for: med/psych decompensation Time Spent With Patient Time: Total time managing care of this patient today ____ minutes.
[2024-08-17] MEDS: Thiamine HCL 100 MG TABLET PO (08:52)
[2024-08-17] MEDS: Sertraline HCL 50 MG TABLET PO (08:52)
[2024-08-17] MEDS: Doxycycline Monohydrate 100 MG CAPSULE PO ×2 (08:52→21:28)
[2024-08-17] MEDS: cloNIDine HCL 0.1 MG TABLET PO ×2 (08:52→21:29)
[2024-08-17] MEDS: Baclofen 10 MG TABLET PO ×2 (08:53→21:28)
--- NOTE | 2024-08-17 14:07 | PM.EVENT ---
Event Note Date of Service: 08/17/24 Event Note: Patient is a 38-year-old male admitted to [facility] psych unit who was seen for consult for patient with temperature of 99.3 degrees. Patient previously seen for left arm abscess secondary to IVDU. Patient was seen by General surgery for bedside drainage where a large amount of pus was extracted. Patient has been on doxycycline 100 mg b.i.d. since 08/14. Repeat temperature indicated patient was normal thermic at 97.5. Patient seen and evaluated on the unit where he has no acute medical complaints. Reports arm feels better with no additional drainage or erythema. No concern for sepsis. Patient should continue doxycycline as prescribed for a total of 7 day treatment. No additional workup or treatment indicated at this time. Time Spent With Patient Time: Total time managing care of this patient today ____ minutes.
[2024-08-17] MEDS: hydrOXYzine HCL 25 MG TABLET PO ×2 (15:28→21:29)
[2024-08-17 20:00] VITALS: BP 117/62; PULSE 63; RESP 16; TEMP 36.8; O2SAT 99
[2024-08-17] MEDS: Mirtazapine 15 MG TABLET PO (21:29)
[2024-08-18 08:00] VITALS: BP 102/59; PULSE 64; RESP 14; TEMP 36.6; O2SAT 99
[2024-08-18] MEDS: methADONE HCl 20 MG/2 ML ORAL.CONC 105 MG PO (08:34)
--- NOTE | 2024-08-18 09:09 | HO.PSYCHPN ---
Subjective Subjective Date of Service: 08/18/24 Reason For Visit: fell Head strike, LOC +c collar Subjective Notes: Conditional Voluntary Interim History: Met with pt and discussed with the team who report pt to be withdrawn, sullen with anxious and depressive sx present. Visable in milieu. Pt slept nine hours last evening. Temp is now WNL. Pt reassured when he met with hospitalist on 08/17 to review L forearm sx. Pt states he is prepared for discharge. He denies SI/HI/AH/VH Side effects from medications: No Review of Systems Acute medical concerns: No Medical Review of Systems: unchanged Review of Systems Review of Systems Denies today Mental Status Exam Mental Status Exam Patient Appearance: Fatigued and Appropriate Patient Orientation: Person, Place, Time and Situation Level of Consciousness: Alert Patient Behavior: Talkative, Cooperative, Fatigued, Isolative (resting in his room) and Good Eye Contact Mood Description: Flat Affect Description: Flat Patient Cognition Impaired: No Ability to Follow Directions: Good Speech Pattern: Spontaneous Speech Hallucinations: None Delusions: Not Present Thought Content: positive for Circumstantial and positive for Suicidal Ideation (denies) Judgement: Fair Diagnostics Vital Signs (24Hr): Vital Signs - 24 hr 08/17/24 20:00 08/18/24 08:00 Temperature 98.2 F 97.8 F Pulse Rate 63 64 Respiratory Rate 16 14 Blood Pressure 117/62 102/59 L Pulse Oximetry 99 99 Oxygen Delivery Method Room Air Room Air BMI result Body Mass Index 22.9 Labs 08/07/24 22:58 08/07/24 22:58 Imaging Radiology Impressions: ITS Impressions Cervical Spine CT 08/07/24 22:40 IMPRESSION: 1. No evidence of acute intracranial hemorrhage or edematous territorial infarction. 2. Mild to moderate nonspecific white matter changes. 3. No evidence of acute fracture or traumatic subluxation of the cervical spine. Electronically signed by: Zana De Leon DO 08/08/2024 12:[address] 08/07/24 22:52 IMPRESSION: 1. No evidence of acute intracranial hemorrhage or edematous territorial infarction. 2. Mild to moderate nonspecific white matter changes. 3. No evidence of acute fracture or traumatic subluxation of the cervical spine. Electronically signed by: Zana De Leon DO 08/08/2024 12:25 AM EDT RP Medications Medications Current Medications Acetaminophen (Acetaminophen 325 Mg Tablet) 650 mg PO Q6H PRN PRN Reason: Headache/Pain Mild Scale (1-3) Last Admin: 08/14/24 10:17 Dose: 650 mg Al Hydroxide/Mg Hydroxide (Magnesium Hydrox/Alum Hydrox 30 Ml Oral.Susp) 30 ml PO Q6H PRN PRN Reason: Heartburn/Nausea Baclofen (Baclofen 10 Mg Tablet) 10 mg PO BID [facility] Last Admin: 08/17/24 21:28 Dose: 10 mg Clonidine HCl (Clonidine Hcl 0.1 Mg Tablet) 0.1 mg PO BID [facility]; Protocol Last Admin: 08/17/24 21:29 Dose: 0.1 mg Doxycycline Monohydrate (Doxycycline Monohydrate 100 Mg Capsule) 100 mg PO BID [facility] Stop: 08/21/24 11:44 Last Admin: 08/17/24 21:28 Dose: 100 mg Hydroxyzine HCl (Hydroxyzine Hcl 25 Mg Tablet) 25 mg PO Q6H PRN PRN Reason: Anxiety Last Admin: 08/17/24 21:29 Dose: 25 mg Ibuprofen (Ibuprofen 600 Mg Tablet) 600 mg PO Q8H PRN PRN Reason: Pain, Moderate(Pain Scale 4-6) Last Admin: 08/16/24 09:59 Dose: 600 mg Magnesium Hydroxide (Milk Of Magnesia 30 Ml Oral.Susp) 30 ml PO DAILY PRN PRN Reason: Constipation Methadone HCl (Methadone Hcl 20 Mg/2 Ml Oral.Conc) 105 mg PO DAILY [facility] Last Admin: 08/18/24 08:34 Dose: 105 mg Mirtazapine (Mirtazapine 15 Mg Tablet) 15 mg PO BEDTIME [facility] Last Admin: 08/17/24 21:29 Dose: 15 mg Multi-Ingred Cream/Lotion/Oil/Oint (Mineral Oil/Petrolatum,White 106 Gm Tube) 1 appl TOPICAL DAILY [facility]; Protocol Last Admin: 08/17/24 11:17 Dose: Not Given Nicotine (Nicotine 21 Mg Patch.Td24) 21 mg TRANSDERMA DAILY PRN PRN Reason: craving Nicotine Polacrilex (Nicotine Polacrilex 2 Mg Gum) 4 mg BUCCAL Q2H PRN PRN Reason: Nicotine Cravings Last Admin: 08/13/24 10:36 Dose: 4 mg Sertraline HCl (Sertraline Hcl 50 Mg Tablet) 50 mg PO DAILY [facility] Last Admin: 08/17/24 08:52 Dose: 50 mg Thiamine HCl (Thiamine Hcl 100 Mg Tablet) 100 mg PO DAILY [facility] Last Admin: 08/17/24 08:52 Dose: 100 mg Trazodone HCl (Trazodone Hcl 50 Mg Tablet) 50 mg PO BEDTIME MRX1 PRN PRN Reason: Insomnia Allergies Allergies Allergy/AdvReac Type Severity Reaction Status Date / Time No Known Allergies Allergy Verified 08/07/24 22:18 [No Known Allergies*] Assessment & Plan Assessment & Plan (1) MDD (major depressive disorder), recurrent episode: Status: Acute Code(s): F33.9 - Major depressive disorder, recurrent, unspecified (2) PTSD (post-traumatic stress disorder): Status: Acute Code(s): F43.10 - Post-traumatic stress disorder, unspecified (3) Cocaine use disorder: Status: Acute Code(s): F14.10 - Cocaine abuse, uncomplicated (4) Opioid use disorder: Status: Acute Code(s): F11.90 - Opioid use, unspecified, uncomplicated (5) Homelessness: Status: Acute Code(s): Z59.00 - Homelessness unspecified Plan Patient is a 38-year-old male with history of MDD, PTSD, opiate use disorder and cocaine use disorder who was brought in to the ER after being found slumped over on the street and reported suicidal ideation with plan to intentionally overdose. Plan: CV 15 minute safety checks Continue methadone Start: Mirtazapine 15 mg p.o. bedtime Clonidine 0.1 mg p.o. b.i.d. CIWA protocol Encourage groups Referral to outpatient prescriber and therapist Referral to substance abuse program Discharge planning 08/10: got 1 mg of ativan per CIWA since admission. not in EtOH withdrawal, DC ativan PRN and CIWA. start zoloft 50 mg daily. c/o sweats, anxiety; recent alcohol, cocaine, opioid use. 08/11: continue current mgmt. no requests or complaints. wound consult pending. 08/12: increase clonidine to 0.1 TID per pt request. otherwise continue current mgmt. 08/13: Active on unit. attending groups. Pt reports feeling anxious today; pt stated, my depression is getting lower . Pt reports he is interested in attending an outpatient substance abuse program when discharged. denies SI/HI/VH/AH. Pt reports sleeping well. Continue current tx plan. 08/14: Pt reports feeling okay today; continues to report anxiety and depression. per nursing, slept 7 hours. denies SI/HI/VH/AH. Hospitalist consult placed for left arm abbess; pt reports discomfort. 08/15: Pt reports feeling alright today;pt reports he is considering either returning to his grandmothers house or going to a [facility]. denies SI/HI/VH/AH. Pt was seen by surgery for left arm abbess; please see note. 08/16: Pt reports feeling okay today; he reports improved sleep. denies SI/HI/VH/AH. pt requested to be started on baclofen for cocaine dependence; risks/benefits reviewed. Start: Baclofen 10mg PO BID Planning for discharge on Monday if pt continues to improve; pt aware and agrees. 08/17: Looking to discharge on 08/19. Agrees to hospitalist consult for ?abscess evaluation. T 99.3 today. Denies SI/HI/AH/VH. Focused today on his treatment plan. 08/18: Continue current tx plan. Reason for continued inpatient stay Substantial Risk for: rapid decompensation Time Spent With Patient Time: Total time managing care of this patient today ____ minutes.
[2024-08-18] MEDS: Baclofen 10 MG TABLET PO ×2 (09:10→20:23)
[2024-08-18] MEDS: Thiamine HCL 100 MG TABLET PO (09:10)
[2024-08-18] MEDS: Sertraline HCL 50 MG TABLET PO (09:10)
[2024-08-18] MEDS: cloNIDine HCL 0.1 MG TABLET PO ×2 (09:10→20:24)
[2024-08-18] MEDS: Doxycycline Monohydrate 100 MG CAPSULE PO ×2 (09:11→20:23)
[2024-08-18] MEDS: hydrOXYzine HCL 25 MG TABLET PO (12:58)
[2024-08-18 19:25] VITALS: BP 98/52; PULSE 51; RESP 14; TEMP 36.8; O2SAT 98
[2024-08-18] MEDS: Mirtazapine 15 MG TABLET PO (20:23)
[2024-08-19 07:10] VITALS: BP 108/66; PULSE 57; RESP 16; TEMP 36.8; O2SAT 100
[2024-08-19] MEDS: methADONE HCl 20 MG/2 ML ORAL.CONC 105 MG PO (08:08)
[2024-08-19 08:45] VITALS: BP 99/58; PULSE 61; RESP 18
[2024-08-19 08:47] VITALS: BP 108/66
[2024-08-19] MEDS: cloNIDine HCL 0.1 MG TABLET PO (08:47)
[2024-08-19] MEDS: Sertraline HCL 50 MG TABLET PO (08:47)
[2024-08-19] MEDS: Baclofen 10 MG TABLET PO (08:47)
[2024-08-19] MEDS: Thiamine HCL 100 MG TABLET PO (08:47)
[2024-08-19] MEDS: Doxycycline Monohydrate 100 MG CAPSULE PO (08:47)
--- NOTE | 2024-08-19 09:49 | PM.PSYDC ---
DS: Providers Provider Date of Service: 08/19/24 Date of admission: 08/08/24 13:51 Date of discharge: 08/19/24 Primary care physician: Unknown Physician Admitting clinician: Ruby Hampton Attending physician on admission: Ministerio Doe Consults: 08/09/24 03:33 Addiction Medicine Routine Consulting Provider: Addiction Covering Reason for consultation: etoh/ poly sub use just prior to arrival 08/09/24 10:36 Consult to Wound Care Routine Reason for consultation: lesions: R knee, R foot, L knee, R great toe Has provider been notified: No 08/14/24 10:00 Consult to Hospitalist Routine Comment: Consulting Provider: Hospitalist Reason For Exam: Painful abcess on L arm, appeared overnight. 08/14/24 11:41 Consult to General Surgery Routine Consulting Provider[place] [facility] Reason for consultation: Large forearm abscess needing drainage, IVDU 08/17/24 08:42 Consult to Hospitalist Routine Comment: Consulting Provider: Hospitalist Reason For Exam: T 99.3; Arm abscess. Attending physician on discharge: Ministerio Doe Discharging clinician: Ruby Hampton DS: Diagnosis Discharge Diagnosis (1) MDD (major depressive disorder), recurrent episode: Status: Acute (2) PTSD (post-traumatic stress disorder): Status: Acute (3) Cocaine use disorder: Status: Acute (4) Opioid use disorder: Status: Acute (5) Homelessness: Status: Acute DS: Medications Discharge Medications Home Medications: Home Medications ?Medication ?Instructions ?Recorded ?Confirmed methadone 10 mg/mL oral 105 mg PO DAILY 08/08/24 08/08/24 concentrate (Methadone Intensol) Mental Status Exam Mental Status Exam Narrative: Pt is alert and oriented; behavior is cooperative and calm; dressed in casual attire; mood is described as good ; eye contact appropriate; Speech is normal rate, volume and not pressured; thought process is organized and goal directed; Thought content is on tx; otherwise pertinent to relevant topics and without any delusional content, paranoid ideations or grandiosity; denies SI/HI/VH/AH. Data Imaging Diagnostic Imaging Impressions Cervical Spine CT 08/07/24 22:40 IMPRESSION: 1. No evidence of acute intracranial hemorrhage or edematous territorial infarction. 2. Mild to moderate nonspecific white matter changes. 3. No evidence of acute fracture or traumatic subluxation of the cervical spine. Electronically signed by: Zana Hernandezdeshawn HAWTHORNE 08/08/2024 12:25 AM EDT RP Head CT 08/07/24 22:52 IMPRESSION: 1. No evidence of acute intracranial hemorrhage or edematous territorial infarction. 2. Mild to moderate nonspecific white matter changes. 3. No evidence of acute fracture or traumatic subluxation of the cervical spine. Electronically signed by: Zana Hernandezdeshawn HAWTHORNE 08/08/2024 12:25 AM EDT RP DS: Summary Hospital Course Hospital Course: Patient is a 38-year-old male with history of MDD, PTSD, opiate use disorder and cocaine use disorder who was brought in to the ER after being found slumped over on the street and reported suicidal ideation with plan to intentionally overdose. Per crisis report, patient was brought in by ambulance after being found at [employer] slumped over. When arrived at ER patient reported alcohol use, IV cocaine use and suicidal ideation with no plan. Patient reports he was released from [facility] in May. He denies currently being on probation. He reports not following up with providers upon release. Patient has history of several psychiatric admissions for suicidal ideation. Patient reported feelings of hopelessness and has been having thoughts of intentionally overdosing. Patient denies HI/AH/VH. During admission assessment, patient presents alert and oriented x3. calm and cooperative. Patient reports feeling anxious and depressed; patient stated, I was feeling depressed and anxious. I don't know why I was thinking of hurting myself but I did not have a plan. [facility] was [facility] [employer] and I called the ambulance because I was feeling dizzy. I knew I was going to pass out . Patient reports he has been using a gram of cocaine daily along with a bundle of IV heroin. He also reports smoking marijuana. Denies any other substance use. Patient reports his longest sobriety was for a few months when at the [facility] in [place]. Patient reports he would like help getting sober. Patient stated, I need to get back on my meds and see a therapist. I want to try to go to a drug program to get clean . Patient reports history of multiple detox admissions; reporting last admission being 2 years ago. Patient is unable to recall names of facilities. Patient reports he is currently not taking any psychiatric medication and he does not have outpatient providers. He reports taking medications while incarcerated; Seroquel, mirtazapine, Haldol, gabapentin, Depakote, bupropion, clonidine. Plan: CV 15 minute safety checks Continue methadone Start: Mirtazapine 15 mg p.o. bedtime Clonidine 0.1 mg p.o. b.i.d. CIWA protocol Encourage groups Referral to outpatient prescriber and therapist Referral to substance abuse program Discharge planning got 1 mg of ativan per CIWA since admission. not in EtOH withdrawal, DC ativan PRN and CIWA. start zoloft 50 mg daily. c/o sweats, anxiety; recent alcohol, cocaine, opioid use. continue current mgmt. no requests or complaints. wound consult pending. increase clonidine to 0.1 TID per pt request. otherwise continue current mgmt. Active on unit. attending groups. Pt reports feeling anxious today; pt stated, my depression is getting lower . Pt reports he is interested in attending an outpatient substance abuse program when discharged. denies SI/HI/VH/AH. Pt reports sleeping well. Continue current tx plan. Pt reports feeling okay today; continues to report anxiety and depression. per nursing, slept 7 hours. denies SI/HI/VH/AH. Hospitalist consult placed for left arm abbess; pt reports discomfort. Pt reports feeling alright today;pt reports he is considering either returning to his grandmothers house or going to a CSS. denies SI/HI/VH/AH. Pt was seen by surgery for left arm abbess; please see note. Pt reports feeling okay today; he reports improved sleep. denies SI/HI/VH/AH. pt requested to be started on baclofen for cocaine dependence; risks/benefits reviewed. Start: Baclofen 10mg PO BID Planning for discharge on Monday if pt continues to improve; pt aware and agrees. Looking to discharge on 08/19. Agrees to hospitalist consult for ?abscess evaluation. T 99.3 today. Denies SI/HI/AH/VH. Focused today on his treatment plan. Patient reports feeling good and ready to go ; pt denies SI/HI/VH/AH. Pt reports he plans on following up with his outpatient providers. Time spent discussing smoking cessation with patient: 3 to 10 minutes Status at Discharge Cognitive/behavioral status at discharge: Patient was interviewed prior to discharge and found to be fully oriented and without SI or HI. Patient has insight and demonstrates good judgment in terms of wanting to pursue treatment. Patient has a safety plan that includes presenting to the closest ER or calling 911 if feeling unsafe. Functional status at discharge: independent ambulation Overall status at discharge: patient is back to baseline Time Spent with Patient Time attestation: Total time managing care of this patient today _20___ minutes. Time spent: Less than 30 minutes Discharge Plan Discharge Anticipated Discharge Date/Time: 08/19/24 10:30 Patient Disposition: Home, Self-Care Discharge Diagnosis: MDD, PTSD, Cocaine use d/o, opioid use d/o Referrals: Elsie White ([facility] therapist) [Other] - 08/26/24 11:00 am (In person appointment) Benigno Gonzalez ([facility] psychiatrist) [Other] - 09/09/24 9:00 am (In person appointment) [facility] (OTP clinic) [Other] - 1 Week (Follow up with clinic when discharged, bring all discharge paperwork and last dose note to clinic.) Shin Chinchilla MD [Physician] - 08/21/24 10:15 am (Your follow up appt has been scheduled with Kinga Boudreaux at Dr. Chinchilla's office on 08-21-24 @ 10:15am) Discharge Medications: New doxycycline monohydrate 100 mg Capsule 100 mg PO BID 3 Days Qty: 6 0RF baclofen 10 mg Tablet 10 mg PO BID 30 Days Qty: 60 0RF clonidine HCl 0.1 mg Tablet 0.1 mg PO BID 30 Days Qty: 60 0RF Protocol: Hold for SBP< HOLD for SBP < : 90 mirtazapine 15 mg Tablet 15 mg PO BEDTIME 30 Days Qty: 30 0RF sertraline 50 mg Tablet 50 mg PO DAILY 30 Days Qty: 30 0RF Continued methadone [Methadone Intensol] 10 mg/mL Concentrate 105 mg PO DAILY Discharge Orders: Discharge Order (Routine); Ordered 08/19/24 Ordered By: Ruby Hampton Diet: Regular diet Activity on Discharge: As tolerated Stand Alone Forms: Patient Portal Discharge page, Community Support Print Language: Khmer Care Plan Goals: Maintain mood and safe behaviors Take medications as prescribed Continue to pursue sobriety Practice coping skills Continue with outpatient providers and reach out to them as needed Health Concerns: Mood stability and behaviors Sobriety Plan of Treatment: Follow up with your PCP, psychiatric provider and other outpatient providers regarding above concerns Take medications as prescribed Assessment: Patient was interviewed prior to discharge and found to be fully oriented and without SI or HI. Patient has insight and demonstrates good judgment in terms of wanting to pursue treatment. Patient has a safety plan that includes presenting to the closest ER or calling 911 if feeling unsafe.
[2024-08-19] MEDS: Naloxone HCl Nasal TAKE HOME 4 MG SPRAY 8 MG NOSTRILALT (10:20)
--- NOTE | 2024-08-19 11:45 | PC.NURSE ---
Patient easily engaged. Reports mood is stable, denies depression or sadness. Denies anxiety. Denies SI/HI plan or intent. Denies perceptual disturbances, no overt psychosis or expressed delusions. Reports he is planning to go to grandmothers following discharge. Discharge paperwork reviewed with patient, reports understanding. Follow up appointment reviewed with patient reports understanding. Medications reviewed with patient reports understanding. Crisis numbers provided to patient with discharge information. Take home Narcan given to patient on discharge. All belongings taken with patient.
== END 2024-08-19 11:00 | disposition home or self-care (01) | DRG 751 ==
LOC: HO.ED 08-08 00:56 → HO.PADLT16 08-08 13:57
PROVIDERS: Admitting Provider Registered Nurse; Emergency Provider Emergency Medicine; Responsible Provider Registered Nurse; Visit Provider Psychiatry & Neurology Psychiatry
DX: F33.9 Major depressive disorder, recurrent, unspecified (principal); R45.851 Suicidal ideations; F14.10 Cocaine abuse, uncomplicated; F43.10 Post-traumatic stress disorder, unspecified; F11.20 Opioid dependence, uncomplicated; F19.10 Other psychoactive substance abuse, uncomplicated; F17.210 Nicotine dependence, cigarettes, uncomplicated; Z59.02 Unsheltered homelessness; Z71.6 Tobacco abuse counseling; Z79.899 Other long term (current) drug therapy
CPT/HCPCS: 36415; 70450; 72125; 80053; 80307; 81001; 84484; 85025; 93005; 99285; J2003; S9485

== ENCOUNTER → 2024-08-07 22:41 | Outpatient (BNV) | payer MEDICAID, SELFPAY | PROVIDERS: Emergency Provider Emergency Medicine; Visit Provider Internal Medicine Cardiovascular Disease | DX: R94.31 Abnormal electrocardiogram [ECG] [EKG] (principal) | CPT/HCPCS: 93010 ==

== ENCOUNTER → 2024-08-08 13:51 | Outpatient (BNV) | payer MEDICAID, SELFPAY | PROVIDERS: Admitting Provider Registered Nurse; Emergency Provider Emergency Medicine; Responsible Provider Registered Nurse; Visit Provider Surgery | DX: L02.414 Cutaneous abscess of left upper limb (principal) | CPT/HCPCS: 10060; 99222 ==

== ENCOUNTER → 2024-08-08 13:51 | Outpatient (BNV) | payer OTHER, SELFPAY | PROVIDERS: Admitting Provider Registered Nurse; Emergency Provider Emergency Medicine; Responsible Provider Registered Nurse; Visit Provider Psychiatry & Neurology Psychiatry | DX: F33.2 Major depressive disorder, recurrent severe without psychotic features (principal); F14.10 Cocaine abuse, uncomplicated; F11.90 Opioid use, unspecified, uncomplicated; F43.11 Post-traumatic stress disorder, acute | CPT/HCPCS: 90792; 99231; 99232; 99238 ==

== ENCOUNTER 2024-09-06 02:14 | Emergency (ER) | payer MEDICAID, SELFPAY ==
[2024-09-06 02:40] VITALS: BP 104/77; PULSE 80; RESP 18; TEMP 37.3; O2SAT 95; BMI 29.0
--- NOTE | 2024-09-06 03:46 | ED.GENADULT ---
HPI - General Adult General Chief complaint: Psychiatric Symptoms Stated complaint: crisis Time Seen by Provider: 09/06/24 03:24 Source: patient Mode of arrival: ambulatory Limitations: no limitations History of Present Illness ED Provider: DR. Christian HPI narrative: 38-year-old male came in for evaluation after used too much drugs over the past 2 days, patient stated it is mostly cocaine by shooting, no visual or auditory hallucination, no SI, no HI. Related Data Home Medications ?Medication ?Instructions ?Recorded ?Confirmed methadone 10 mg/mL oral 105 mg PO DAILY 08/08/24 08/08/24 concentrate (Methadone Intensol) Previous Rx's ?Medication ?Instructions ?Recorded baclofen 10 mg tablet 10 mg PO BID 30 days #60 tabs 08/19/24 clonidine HCl 0.1 mg tablet 0.1 mg PO BID 30 days #60 tabs 08/19/24 doxycycline monohydrate 100 mg 100 mg PO BID 3 days #6 caps 08/19/24 capsule mirtazapine 15 mg tablet 15 mg PO BEDTIME 30 days #30 tabs 08/19/24 sertraline 50 mg tablet 50 mg PO DAILY 30 days #30 tabs 08/19/24 Allergies Allergy/AdvReac Type Severity Reaction Status Date / Time No Known Allergies Allergy Verified 09/06/24 02:42 [No Known Allergies*] Review of Systems Review of Systems: All other systems are reviewed and are negative Constitutional: Reports as per HPI and Reports no additional constitutional complaints Eyes: Reports as per HPI and Reports no additional eye complaints Reports system reviewed and no additional complaints, except as documented Cardiovascular: Reports as per HPI and Reports no additional cardiovascular complaints Respiratory: Reports as per HPI and Reports no additional respiratory complaints Gastrointestinal: Reports as per HPI and Reports no additional gastrointestinal complaints Genitourinary: Reports no additional female genitourinary complaints Musculoskeletal: Reports no additional musculoskeletal complaints Skin/Breast: Reports system reviewed and no additional complaints, except as docu Psychiatric: Reports no additional psychiatric complaints Endocrine: Reports no additional endocrine complaints Hematologic/Lymphatic: Reports no additional hematologic/lymphatic complaints Allergic/Immunologic: Reports no additional allergic/immunologic complaints Reports system reviewed and no additional complaints, except as documented and Reports Abnormal speech present PMFSH Past Medical History Medical History Suicidal ideation Polysubstance abuse Abscess of left forearm Polysubstance abuse Anxiety and depression Social History Social History Household Members: None Housing: Homeless Do you presently have visiting nurse or other home services: No Unable to assess alcohol history related to: Unknown Patient Tobacco Use Status: Current everyday Tobacco user Tobacco use type: Cigarette Cigarette Packs Per Day: 0.5 Cigarettes Per Day: 10.0 e-Cigarette/Vaping Use: Never Used Second Hand Smoke Exposure: No Substance Use Type: Crack/Cocaine, IV Drugs, Marijuana and Opiates Advance Directives: No Advance Directives Information Provided: No Do you have a plan to hurt others: No Plan service: No Sexual orientation: Straight/Heterosexual Physical Exam ED Vital Signs: Vital Signs - 24 hr 09/06/24 02:40 Temperature 99.2 F Pulse Rate 80 Respiratory Rate 18 Blood Pressure 104/77 Pulse Oximetry 95 Oxygen Delivery Method Room Air BMI result Body Mass Index 29.0 Vital signs have been reviewed and appear to be correct. Blood pressure elevated. Heart rate normal. Respiratory rate normal. Temperature normal. Oxygen saturation normal. Appearance: Alert. Oriented X3. No acute distress. Head: Normal external exam. Normocephalic. Atraumatic. No Brock signs noted. No raccoon eyes noted Eyes: PERRLA. EOMI. Conjunctiva and sclera normal. Eyelids normal. ENT: TM's Normal. Pharynx normal. Uvula midline. Moist mucous membranes. No trismus noted. No drooling noted. No muffled voice noted. Neck: Normal inspection. Neck supple. FROM. No adenopathy. Thyroid Normal. No meningeal signs. No neck mass noted. CVS: Normal heart rate and rhythm. Heart sound normal. No murmurs noted. Pulses normal throughout. Respiratory: No respiratory distress. Painless inspiration. Breath sounds normal. No wheezes/rales/rhonchi noted. Chest nontender. No accessory muscle usage noted or decreased air movement noted. Abdomen: Soft and nontender. Bowel sounds normal in all 4 quadrants. No distention noted. No organomegaly noted. No visible injury noted. Back: No CVA tenderness. Full range of motion noted. Skin: Skin warm and dry. Normal skin color. Normal skin turgor. No rashes/lesions/lacerations noted. Extremities: No lower extremity edema. Extremities exhibit normal range of motion. Extremities nontender. Neuro: Oriented X 3. Cranial nerve exam: II-XII are grossly intact No motor deficit. No sensory deficit. Reflexes normal. Course Reevaluation(s) Reevaluation #1: Medical clearance and care team evaluation. Time: 03:49 Medical Decision Making Differential Diagnosis Differential Diagnoses: The differential diagnosis associated with the presentation includes (Medical clearance, acute psychosis, substance abuse.) Admission/Observation Consideration of admission/observation: Escalation of care including admission/observation considered Lab Data MDM Lab Attestation statement: I reviewed the patient's lab results. Discharge Plan Discharge Clinical Impression: Acute anxiety, Substance abuse Patient Disposition: Still a Patient Prescriptions: No Action methadone [Methadone Intensol] 10 mg/mL Concentrate 105 mg PO DAILY doxycycline monohydrate 100 mg Capsule 100 mg PO BID 3 Days Qty: 6 0RF baclofen 10 mg Tablet 10 mg PO BID 30 Days Qty: 60 0RF clonidine HCl 0.1 mg Tablet 0.1 mg PO BID 30 Days Qty: 60 0RF Protocol: Hold for SBP< HOLD for SBP < : 90 mirtazapine 15 mg Tablet 15 mg PO BEDTIME 30 Days Qty: 30 0RF sertraline 50 mg Tablet 50 mg PO DAILY 30 Days Qty: 30 0RF Print Language: Chinese
[2024-09-06 04:13] LABS: Basophils Percent Auto 0.5 % (0-2); Eosinophils Absolute Auto 0.3 X10*3/uL (0.0-0.4); Hematocrit 35.5 % (42.0-52.0); Imm Gran Abs Auto 0.02 X10*3/uL (0.00-0.03); Imm Gran Pct Auto 0.2 % (0.0-0.4); Lymphocytes Absolute Auto 3.2 X10*3/uL (1.2-4.9); Lymphocytes Percent Auto 37.9 % (20-40); MANUAL DIFF FLAG NO; Mean Corpuscular HGB Conc 33.8 g/dl (31.0-36.0); Mean Corpuscular Volume 85.7 fL (80.0-98.0); Mean Platelet Volume 10.5 fL (9.4-12.4); Monocytes Absolute Auto 0.7 X10*3/uL (0.1-1.2); Monocytes Percent Auto 7.7 % (2-11); Neutrophils Absolute Auto 4.3 x10*3/uL (2.0-8.3); Neutrophils Percent Auto 50.7 % (45-73); Platelet Count 162 X10*3/uL (160-400); Red Blood Count 4.14 X10*6/uL (4.60-5.80); Red Cell Distribution Width 13.2 % (11.0-16.0); White Blood Count 8.5 X10*3/uL (4.8-10.8)
[2024-09-06 04:29] LABS: Anion Gap 17 (12-20); Blood Urea Nitrogen 15 mg/dL (9-16); Calcium 9.7 mg/dL (8.4-10.2); Carbon Dioxide 21 mmol/L (22-29); Chloride 105 mmol/L (96-108); Creatinine Clr Calc Pharmacy 136.4; Estimated Glomerular Filt Rate > 60; Glucose Random 115 mg/dL (60-115); Potassium 4.4 mmol/L (3.3-5.1); Sodium 139 mmol/L (135-145)
--- NOTE | 2024-09-06 07:23 | PC.NURSE ---
Care of Pt assumed at change of shift. Pt sleeping comfortably in bed. Pt easily awakens when alerted that breakfast has arrived. Pt continues to rest comfortably.
[2024-09-06 10:02] VITALS: BP 100/62
[2024-09-06] MEDS: cloNIDine HCL 0.1 MG TABLET PO (10:02)
[2024-09-06] MEDS: Sertraline HCL 50 MG TABLET PO (10:08)
--- NOTE | 2024-09-06 10:08 | PC.NURSE ---
Call received from Pharmacy, unable to locate methadone verification form. Will re-do form and send. Morning meds administered. Baclofen unavailable in pod pyxis, will request from Main ED pyxis and administer on arrival.
--- NOTE | 2024-09-06 10:22 | HE.PHANOTE ---
Re Methadone Received verification from nursing. Pt gets 125mg daily from [facility] Care Resource [place] : [place]. Last dose was on 09/04/24
--- NOTE | 2024-09-06 10:24 | PC.NURSE ---
[facility] in [place] Verified Methadone 125mg last given 09/04/24 Spoke with RN Mayra. Methadone verification form completed and faxed to Pharmacy. Call placed to confirm receipt.
--- NOTE | 2024-09-06 10:37 | MHC.CARE ---
Pt will be a dual dx bedsearch
[2024-09-06] MEDS: methADONE HCl 20 MG/2 ML ORAL.CONC 125 MG PO (11:49)
[2024-09-06] MEDS: Baclofen 10 MG TABLET PO (11:49)
--- NOTE | 2024-09-06 12:06 | MHC.CARE ---
Accepted to Jackelin Moseley, [facility] [address] [address], [place] [address]. [address] Dr. Zander NINO PARUL, CARE TEAM and POD notified, transport is being booked.
[2024-09-06 13:46] LABS: Appearance Urine Clear; Color Urine Yellow; Glucose Urine UA Negative (Negative); Leukocyte Esterase Urine Trace (Negative); Nitrite Urine Negative (Negative); PH 6.5 (5.0-9.0); Specific Gravity - Urine 1.025 (1.005-1.025); UMIC TRIGGER UACC YES; Urine Blood Negative (Negative); Urine Ketones Trace mg/dL (Negative); Urine Protein Negative (Neg-Trace)
[2024-09-06 13:49] LABS: Bacteria Urine None Seen (None Seen); Hyaline Casts Urine 0-2 /LPF (0-2); RBC Urine 0-2 /HPF (0-2); Squamous Epithelial Cell Urine 0-2 /HPF (0-2); WBC Urine 0-5 /HPF (0-5)
[2024-09-06 13:58] LABS: Amphetamine Screen Urine Not Detected (Not Detect); Barbiturates, Urine Not Detected (Not Detect); Benzodiazepines Screen Urine Not Detected (Not Detect); Buprenorphine Scr Not Detected (Not Detect); Cannabinoid Screen Urine Not Detected (Not Detect); Cocaine Screen Urine POSITIVE (Not Detect); Fentanyl, urine POSITIVE (Not Detect); Methadone Screen, Urine Positive (Not Detect); Opiate Screen Urine POSITIVE (Not Detect); Oxycodone Screen Urine Not Detected (Not Detect); Phencyclidine Screen Urine Not Detected (Not Detect)
[2024-09-06 14:25] VITALS: BP 99/65; PULSE 65; RESP 16; TEMP 36.9; O2SAT 97
[2024-09-06 15:51] VITALS: BP 99/65; PULSE 65; RESP 16; TEMP 36.9; O2SAT 97
== END 2024-09-06 15:51 | disposition still patient (30) ==
PROVIDERS: Emergency Provider Emergency Medicine; PCP Family Medicine
DX: F41.9 Anxiety disorder, unspecified (principal); F19.10 Other psychoactive substance abuse, uncomplicated; F33.9 Major depressive disorder, recurrent, unspecified; F43.10 Post-traumatic stress disorder, unspecified; F17.210 Nicotine dependence, cigarettes, uncomplicated; F14.10 Cocaine abuse, uncomplicated; F11.20 Opioid dependence, uncomplicated; Z79.899 Other long term (current) drug therapy
CPT/HCPCS: 36415; 80048; 80307; 81001; 85025; 99284; S9485

== ENCOUNTER 2025-02-20 02:45 | Emergency (ER) | payer MEDICAID, SELFPAY ==
[2025-02-20 02:52] VITALS: BP 115/72; PULSE 87; RESP 16; TEMP 36.8; O2SAT 96; BMI 22.6
--- OUTSIDE RECORDS SUMMARY | 2025-02-20 03:02 | XMS_ITS | Clinical Summary ---
Author Organization [facility] Address [address] [place] [address] Care Team Providers Care Behavior Interventionist Name Role Phone Shin Chinchilla Primary Care Provider [phone] Allergies No known active allergies Social History Tobacco Use Types Packs/Day Years Used Date Smoking Tobacco: Never Assessed Sex and Gender Information Value Date Recorded Sex Assigned at Male 10/30/2024 11:07 AM EST Legal Sex Male 11:06 AM EST Gender Identity Not on file Sexual Orientation Not on file Last Filed Vital Signs Vital Sign Reading Time Taken Comments Blood Pressure 132/70 10/30/2024 2:45 PM EST Pulse 70 10/30/2024 2:45 PM EST Temperature 36.8 ??C (98.2 ??F) 10/30/2024 11:[address] Respiratory Rate 19 10/30/2024 2:45 PM EST Oxygen Saturation 100% 10/30/2024 2:45 PM EST Inhaled Oxygen Concentration - - Weight - - Height - - Body Mass Index - - Plan of Treatment Health Maintenance Due Date Last Done Comments HIV Screening 1985 Varicella Vaccines (1 of 2 - 13+ 2-dose series) 1998 Hepatitis B Vaccines (1 of 3 - 19+ 3-dose series) 2004 DTaP,Tdap,and Td Vaccines (1 - Tdap) 2007 COVID-19 Vaccine ( - 2023-2 5 season) 2024 Alcohol/Substance Use Screening 10/30/2024 Influenza Vaccine (Season Ended) 2025 RSV Vaccine (60+ years old a nd patients) (1 - 1-dose 75+ series) 2060 Pneumococcal Vaccine: Pediat [place] (0-5 Years) and At-Risk Patients (6-50 Years) Aged Out No longer eligible b ased on patient's age to complete this topic Insurance [employer] [facility] Care Teams Behavior Interventionist Relationship Specialty Start Date End Date Shin Chinchilla [address] [place] [phone] PCP - General Family Medicine 10/30/24
--- OUTSIDE RECORDS SUMMARY | 2025-02-20 03:02 | XMS_ITS | Clinical Summary ---
Author Organization [facility] Address [address] [place] [address] Care Team Providers Care Machine Tech Name Role Phone Shara Roberts DMD Primary Care Provider Source Comments PLEASE NOTE, if this patient is a minor, it may be UNLAWFUL to discuss sensitive information that is contained in these records (such as FAMILY PLANNING, MENTAL HEALTH or SUBSTANCE ABUSE) with the minor patient's parent or other person without the patient's specific authorization.[facility] Allergies No known active allergies Active Problems Problem Noted Date Diagnosed Date Anxiety 01/08/2025 Depressive disorder 01/08/2025 Hepatitis C virus infection 01/08/2025 Polysubstance abuse ([facility]) 01/08/2025 Posttraumatic stress disorder 01/08/2025 Encounters Date Type Department Care Team Description 01/08/2025 11:00 AM EDT Office Visit [facility] @ [address] [id number] Freda Santana RN Encounter for wound care (Primary Dx) from Last 3 Months Social History Tobacco Use Types Packs/Day Years Used Date Smoking Tobacco: Never Assessed Social Connections Answer Date Recorded Social Connections and Isolation 0 08/13/2020 Financial Resource Strain Answer Date R ecorded Financial Resource Strain 0 2019 Stress Answer Date Recorded Stress 0 08/13/2020 Physical Activity Answer Date Recorded Physical Activity 0 08/13/2020 Food Insecurity Answer Date Recorded Food 0 08/13/2020 Transportation Needs Answer Date Record ed Transportation 0 08/13/2020 Housing Stability Answer Date Recorded Housing 0 08/13/2020 Safety and Environment Answer Date Bertin rded Safety 0 08/13/2020 Utilities Answer Date Recorded Utilities 0 08/13/2020 Employment Answer Date Recorded Employment 0 08/13/2020 Sex and Gender Information Value Date Recorded Sex Assigned at Not on file Legal Sex Male 7:34 AM PDT Gender Identity Not on file Sexual Orientation Not on file Last Filed Vital Signs Vital Sign Reading Time Taken Comments Blood Pressure 106/61 01/08/2025 11:08 AM EDT Pulse 78 01/08/2025 11:08 AM EDT Temperature 36.3 ??C (97.4 ??F) 01/08/2025 11:08 AM E DT Respiratory Rate - - Oxygen Saturation 98% 01/08/2025 11:08 AM EDT Inhaled Oxygen Concentration - - Weight - - Height - - Body Mass Index - - Plan of Treatment Health Maintenance Due Date Last Done Comments Anxiety Screening 1985 Depression Monitoring 1985 Diabetes Screening 1985 LTBI Screening (#1) 1985 Tobacco Screening 1985 HIV Screening 2000 Imm-DTaP/Tdap/Td (1 - Tdap) 2004 Imm-Hepatitis A (1 of 2 - Risk 2-dose series) 12/27/19 05 Imm-Hepatitis B (1 of 3 - 19+ 3-dose series) 5 [id number] ( season) 2024 Imm-Influenza (#1) 2024 Alcohol and Drug Screen 10/30/2024 Hypertension Screening (#1) 01/08/2028 Insurance GENERIC - [facility] Address: [facility] [address] Member Subscriber Plan / Payer (Ef fective 2024-Present) Name:Devon Pacheco Relation to Subscriber:Self Name:Devon Pacheco Payer ID:[id number] Group ID:Not on file Type:Medicaid Address: [place] [address] [place] [id number] Care Teams Machine Tech Relationship Specialty Start Date End Date Shara Roberts DMD [address] [place] [address] [facility] - General 01/08/21
--- OUTSIDE RECORDS SUMMARY | 2025-02-20 03:02 | XMS_ITS | Referral Summary ---
Author Organization [facility] Address [address] [place] [address] Care Team Providers Care Sales Floor Associate Name Role Phone Shin Chinchilla Primary Care Provider Allergies No known active allergies Social History [...] Mass Index - - Plan of Treatment Not on file Insurance B [facility] [place] [id number] [facility] Care Teams Sales Floor Associate Relationship Specialty Start Date End Date Shin Chinchilla [address] [place] [phone] PCP - General Family Medicine 10/30/24
[2025-02-20 03:12] LABS: Eosinophils Absolute Auto 0.1 X10*3/uL (0.0-0.4); Eosinophils Percent Auto 0.7 % (0-4); Imm Gran Abs Auto 0.02 X10*3/uL (0.00-0.03); Imm Gran Pct Auto 0.2 % (0.0-0.4); MANUAL DIFF FLAG SCAN; PLT CLUMP 1; SCAN SMEAR FLAG 1
[2025-02-20 03:14] LABS: Basophils Percent Auto 0.2 % (0-2); Hematocrit 42.3 % (42.0-52.0); Hemoglobin 14.4 g/dl (14.0-18.0); Lymphocytes Absolute Auto 2.9 X10*3/uL (1.2-4.9); Lymphocytes Percent Auto 28.7 % (20-40); Mean Corpuscular Volume 85.3 fL (80.0-98.0); Mean Platelet Volume 10.4 fL (9.4-12.4); Monocytes Absolute Auto 0.8 X10*3/uL (0.1-1.2); Monocytes Percent Auto 7.4 % (2-11); Neutrophils Absolute Auto 6.4 x10*3/uL (2.0-8.3); Neutrophils Percent Auto 62.8 % (45-73); Red Blood Count 4.96 X10*6/uL (4.60-5.80)
[2025-02-20 03:21] LABS: Platelet Count 196 X10*3/uL (160-400); White Blood Count 10.1 X10*3/uL (4.8-10.8)
[2025-02-20 03:27] LABS: Acetaminophen LAB < 3 mcg/mL (<30); Salicylate < 5.0 mg/dL (15-30)
[2025-02-20 03:33] LABS: Alanine Aminotransferase 208 U/L (0-40); Albumin Level 4.4 g/dL (3.5-5.0); Anion Gap 18 (12-20); Aspartate Amino Transferase 129 U/L (5-37); Bilirubin Total 0.7 mg/dL (0.0-1.0); Blood Urea Nitrogen 18 mg/dL (9-16); Calcium 9.7 mg/dL (8.4-10.2); Carbon Dioxide 21 mmol/L (22-29); Chloride 104 mmol/L (96-108); Creatinine Clr Calc Pharmacy 117.2; Estimated Glomerular Filt Rate > 60; Ethanol < 10 mg/dL; Glucose Random 69 mg/dL (60-115); Potassium 4.2 mmol/L (3.3-5.1); Sodium 139 mmol/L (135-145); Total Protein 8.8 g/dL (6.5-8.0)
[2025-02-20 03:43] LABS: SLIDE REVIEW VERIFIED
[2025-02-20 03:50] LABS: Alkaline Phosphatase 117 U/L (39-117)
--- NOTE | 2025-02-20 04:37 | PC.NURSE ---
liver enzymes seem elevated. would recommend f/up with recovery MAT provider if client elects
[2025-02-20 06:08] VITALS: BP 96/60; PULSE 60; RESP 18; TEMP 36.9; O2SAT 96
--- NOTE | 2025-02-20 06:46 | ED_ITS ---
HPI - Psych General Chief Complaint: Psychiatric Symptoms Stated Complaint: Crisis Time Seen by Provider: 02/20/25 06:39 Source: patient Mode of arrival: ambulatory Limitations: no limitations History of Present Illness ED Provider: DR. Christian HPI Narrative: Patient is a 38-year-old male with history of MDD, PTSD, opiate use disorder and cocaine use disorder who walked into the ED for further evaluation of depression with SI. Patient stated that he is not compliant with his psych medication feels depressed and want to hurt himself with plan of cutting his wrist. Patient admitted to use IV heroin last night. No chest pain, no abdominal pain, no fever, no chills. no visual or auditory hallucination. Related Data Home Medications ?Medication ?Instructions ?Recorded ?Confirmed methadone 10 mg/mL oral 120 mg PO DAILY 08/08/24 02/20/25 concentrate (Methadone Intensol) Allergies Allergy/AdvReac Type Severity Reaction Status Date / Time No Known Allergies Allergy Verified 02/20/25 02:54 [No Known Allergies*] Review of Systems 2 Review of Systems: All other systems are reviewed and are negative Constitutional: Reports as per HPI and Reports no additional constitutional complaints Eyes: Reports as per HPI and Reports no additional eye complaints Reports system reviewed and no additional complaints, except as documented Cardiovascular: Reports as per HPI and Reports no additional cardiovascular complaints Respiratory: Reports as per HPI and Reports no additional respiratory complaints Gastrointestinal: Reports as per HPI and Reports no additional gastrointestinal complaints Genitourinary: Reports no additional female genitourinary complaints Musculoskeletal: Reports no additional musculoskeletal complaints Skin/Breast: Reports system reviewed and no additional complaints, except as docu Psychiatric: Reports no additional psychiatric complaints Endocrine: Reports no additional endocrine complaints Hematologic/Lymphatic: Reports no additional hematologic/lymphatic complaints Allergic/Immunologic: Reports no additional allergic/immunologic complaints Reports system reviewed and no additional complaints, except as documented and Reports Abnormal speech present [facility] Past Medical History Medical History Suicidal ideation Polysubstance abuse Abscess of left forearm Polysubstance abuse Anxiety and depression Social History Social History Household Members: None Housing: Homeless Do you presently have visiting nurse or other home services: No Unable to assess alcohol history related to: Unknown Patient Tobacco Use Status: Current everyday Tobacco user Tobacco use type: Cigarette Cigarette Packs Per Day: 0.5 Cigarettes Per Day: 10.0 e-Cigarette/Vaping Use: Never Used Second Hand Smoke Exposure: No Substance Use Type: Crack/Cocaine, IV Drugs, Marijuana and Opiates service: No Sexual orientation: Straight/Heterosexual Physical Exam 2 Vital Signs: Vital Signs: Last Vital Signs Temp 98.2 F 02/20/25 17:05 Pulse 58 02/20/25 17:05 Resp 14 02/20/25 17:05 BP 98/65 02/20/25 17:05 Pulse Ox 96 02/20/25 17:05 O2 Del Method Room Air 02/20/25 17:05 BMI result Body Mass Index 22.6 Vital signs have been reviewed and appear to be correct. Blood pressure elevated. Heart rate normal. Respiratory rate normal. Temperature normal. Oxygen saturation normal. Appearance: Alert. Oriented X3. No acute distress. Head: Normal external exam. Normocephalic. Atraumatic. No Brock signs noted. No raccoon eyes noted Eyes: PERRLA. EOMI. Conjunctiva and sclera normal. Eyelids normal. ENT: TM's Normal. Pharynx normal. Uvula midline. Moist mucous membranes. No trismus noted. No drooling noted. No muffled voice noted. Neck: Normal inspection. Neck supple. FROM. No adenopathy. Thyroid Normal. No meningeal signs. No neck mass noted. CVS: Normal heart rate and rhythm. Heart sound normal. No murmurs noted. Pulses normal throughout. Respiratory: No respiratory distress. Painless inspiration. Breath sounds normal. No wheezes/rales/rhonchi noted. Chest nontender. No accessory muscle usage noted or decreased air movement noted. Abdomen: Soft and nontender. Bowel sounds normal in all 4 quadrants. No distention noted. No organomegaly noted. No visible injury noted. Back: No CVA tenderness. Full range of motion noted. Skin: Skin warm and dry. Normal skin color. Normal skin turgor. No rashes/lesions/lacerations noted. Extremities: No lower extremity edema. Extremities exhibit normal range of motion. Extremities nontender. Neuro: Oriented X 3. Cranial nerve exam: II-XII are grossly intact No motor deficit. No sensory deficit. Reflexes normal. Patient Orientation: Person, Place, Time and Situation, okay hygiene and grooming. Fair eye contact, attentive, no tics or tremors. Level of Consciousness: Awake, Appropriate and Alert Patient Behavior: Appropriate, Guarded, Cooperative and Anxious Mood Description: Constricted, Blunted and Apprehensive Affect Description: Constricted, Blunted and Apprehensive Patient Cognition Impaired: No Ability to Follow Directions: Excellent Speech Pattern: Clear, Appropriate and Spontaneous Speech, nonpressured, spontaneous with regular rate and rhythm, normal volume and prosody. No dysarthria. Memory Description: Intact, Immediate Intact and Short Term Intact Hallucinations: None Delusions: Not Present Thought Process: Intact Thought Content: positive for Intact, +SI with plan of cutting his wrist, denies Homicidal Ideation. Depressive Symptoms: Not present. Judgement and Insight: Limited but adequate. Course Reevaluation(s) Reevaluation #1: will start physician observation, medically cleared chronic elevation of LFTs, Will start physician observation, pending care team evaluation, signed out to the upcoming colleague physician. Time: 06:53 Medications Administered Discontinued Medications Generic Name Dose Route Start Last Admin Trade Name Cliff PRN Reason Stop Dose Admin Lorazepam 1 mg 02/20/25 10:46 02/20/25 11:08 Lorazepam 1 Mg Tablet PO 02/20/25 10:47 1 mg ONCE ONE Administration Methadone HCl 120 mg 02/20/25 09:45 02/20/25 10:16 Methadone Hcl 20 Mg/2 Ml Oral.Conc PO 120 mg DAILY LORRAINE Administration Medical Decision Making Differential Diagnosis Differential Diagnoses: The differential diagnosis associated with the presentation includes ( medical clearance, depression, SI, acute psychosis.) Admission/Observation Consideration of admission/observation: Escalation of care including admission/observation considered Lab Data [facility] Lab Attestation statement: I reviewed the patient's lab results. 02/20/25 03:05 02/20/25 03:05 Labs: Lab Results 02/20/25 02/20/25 Range/Units 03:05 07:00 WBC 10.1 (4.8-10.8) X10*3/uL RBC 4.96 (4.60-5.80) X10*6/uL Hgb 14.4 (14.0-18.0) g/dl Hct 42.3 (42.0-52.0) % MCV 85.3 (80.0-98.0) fL MCH 29.0 (27.0-33.0) pg MCHC 34.0 (31.0-36.0) g/dl RDW 13.0 (11.0-16.0) % Plt Count 196 (160-400) X10*3/uL MPV 10.4 (9.4-12.4) fL Immature Gran % (Auto) 0.2 (0.0-0.4) % Neut % (Auto) 62.8 (45-73) % Lymph % (Auto) 28.7 (20-40) % [place] % (Auto) 7.4 (2-11) % Eos % (Auto) 0.7 (0-4) % Baso % (Auto) 0.2 (0-2) % Lymph # (Auto) 2.9 (1.2-4.9) X10*3/uL [place] # (Auto) 0.8 (0.1-1.2) X10*3/uL Eos # (Auto) 0.1 (0.0-0.4) X10*3/uL Baso # (Auto) 0.0 (0.0-0.2) X10*3/uL Abs Immat Gran (auto) 0.02 (0.00-0.03) X10*3/uL Absolute Neuts (auto) 6.4 (2.0-8.3) x10*3/uL Absolute Nucleated RBC 0.000 (0.0-0.012) X10*3/uL Nucleated RBC % (auto) 0.0 (0.0-0.2) /100WBC Smear Tech's Comments VERIFIED Sodium 139 (135-145) mmol/L Potassium 4.2 (3.3-5.1) mmol/L Chloride 104 (96-108) mmol/L Carbon Dioxide 21 L (22-29) mmol/L Anion Gap 18 (12-20) BUN 18 H (9-16) mg/dL Creatinine 0.76 (0.5-1.4) mg/dL Estim Creat Clear Calc 117.2 Estimated GFR > 60 Random Glucose 69 (60-115) mg/dL Calcium 9.7 (8.4-10.2) mg/dL Total Bilirubin 0.7 (0.0-1.0) mg/dL AST 129 H (5-37) U/L ALT 208 H (0-40) U/L Alkaline Phosphatase 117 (39-117) U/L Total Protein 8.8 H (6.5-8.0) g/dL Albumin 4.4 (3.5-5.0) g/dL Urine Color Dark Yellow Urine Appearance Clear Urine pH 5.5 (5.0-9.0) Ur Specific [place] >= 1.030 H (1.005-1.025) Urine Protein Trace (Neg-Trace) mg/dL Urine Glucose (UA) Negative (Negative) mg/dL Urine Ketones 15 (Negative) mg/dL Urine Blood Negative (Negative) Urine Nitrite Negative (Negative) Ur Leukocyte Esterase Negative (Negative) Urine RBC 0-2 (0-2) /HPF Urine WBC 0-5 (0-5) /HPF Ur Squamous Epith Cells 0-2 (0-2) /HPF Urine Bacteria None Seen (None Seen) Hyaline Casts 0-2 (0-2) /LPF Salicylates < 5.0 L (15-30) mg/dL Urine Opiates Screen POSITIVE H (Not Detect) Ur Buprenorphine Scrn Not Detected (Not Detect) ng/mL Ur Oxycodone Screen Not Detected (Not Detect) ng/mL Urine Methadone Screen Positive H (Not Detect) ng/mL Urine Fentanyl Screen POSITIVE H (Not Detect) Acetaminophen < 3 (<30) mcg/mL Ur Barbiturates Screen Not Detected (Not Detect) Ur Phencyclidine Scrn Not Detected (Not Detect) Ur Amphetamines Screen Not Detected (Not Detect) U Benzodiazepines Scrn Not Detected (Not Detect) Urine Cocaine Screen POSITIVE H (Not Detect) U Marijuana (THC) Screen POSITIVE H (Not Detect) Ethyl Alcohol < 10 mg/dL Discharge Plan Discharge Clinical Impression: MDD (major depressive disorder), recurrent episode, Suicidal ideation Patient Disposition: Xfer Psychiatric Hosp Transfer Details: Dual Dx [facility] Prescriptions: No Action methadone [Methadone Intensol] 10 mg/mL Concentrate 120 mg PO DAILY Interventions: [place]-Suicide Risk Severity Scale Last Done: 02/20/25 03:16 Acute Care Transfer Worksheet (ED) Last Done: 02/20/25 17:05 Discharge Date/Time: 02/20/25 17:06 Print Language: Tamazight
[2025-02-20 07:09] LABS: Appearance Urine Clear; Color Urine Dark Yellow; Glucose Urine UA Negative (Negative); Leukocyte Esterase Urine Negative (Negative); Nitrite Urine Negative (Negative); PH 5.5 (5.0-9.0); Specific Gravity - Urine >= 1.030 (1.005-1.025); Urine Blood Negative (Negative); Urine Ketones 15 mg/dL (Negative); Urine Protein Trace mg/dL (Neg-Trace)
[2025-02-20 07:20] LABS: Amphetamine Screen Urine Not Detected (Not Detect); Barbiturates, Urine Not Detected (Not Detect); Benzodiazepines Screen Urine Not Detected (Not Detect); Buprenorphine Scr Not Detected (Not Detect); Cannabinoid Screen Urine POSITIVE (Not Detect); Cocaine Screen Urine POSITIVE (Not Detect); Fentanyl, urine POSITIVE (Not Detect); Methadone Screen, Urine Positive (Not Detect); Opiate Screen Urine POSITIVE (Not Detect); Oxycodone Screen Urine Not Detected (Not Detect); Phencyclidine Screen Urine Not Detected (Not Detect)
[2025-02-20 07:28] LABS: Bacteria Urine None Seen (None Seen); Hyaline Casts Urine 0-2 /LPF (0-2); RBC Urine 0-2 /HPF (0-2); Squamous Epithelial Cell Urine 0-2 /HPF (0-2); WBC Urine 0-5 /HPF (0-5)
--- NOTE | 2025-02-20 09:54 | HE.PHANOTE ---
RE METHADONE Pharmacy has received methadone maintenance verification form. RN confirmed patient receives methadone from [facility] [phone], last dose was 120 mg given on 02/19/25 @[id number]
[2025-02-20] MEDS: methADONE HCl 20 MG/2 ML ORAL.CONC 120 MG PO (10:16)
[2025-02-20] MEDS: LORazepam 1 MG TABLET PO (11:08)
--- NOTE | 2025-02-20 12:50 | MHC.CARE ---
Patient evaluated by the CARE Team, recommended disposition is dual diagnosis inpatient treatment. Provider, Dr. Stephens updated.
--- NOTE | 2025-02-20 13:47 | ECG_ITS ---
Test Reason : CHECK QT Blood Pressure : */* mmHG Vent. Rate : 46 BPM Atrial Rate : 46 BPM P-R Int : 168 ms QRS Dur : 98 ms QT Int : 524 ms P-R-T Axes : 37 31 44 degrees QTcB Int : 458 ms Sinus bradycardia Minimal voltage criteria for LVH, may be normal variant ( Sokolow-Navarrete ) Borderline ECG When compared with ECG of 07-Aug-2024 22:41, Vent. rate has decreased by 27 bpm T wave inversion no longer evident in Inferior leads Nonspecific T wave abnormality no longer evident in Anterior leads Referred By: Rommel Stephens Electronically Signed By: KVNG MESSER
--- NOTE | 2025-02-20 13:51 | PC.NURSE ---
re: med rec pt states that he has been very insistent with his medications and largely not taking them except for his methadone. Recent DC from [facility] with new prescriptions for new medications but pt states that he never started taking them. Previous scripts pt states he has not been compliant with. these medications removed from med rec. Methadone verifies with [facility]. Pt dosed there last 02/19/25 with 120mg. Form faxed to pharmacy
[2025-02-20 14:55] VITALS: BP 98/65; PULSE 58; RESP 14; TEMP 36.8; O2SAT 96
--- NOTE | 2025-02-20 15:21 | MHC.CARE ---
Pt has been accepted to [address] [id number] for today ETA 6pm, Accepting is Dr. Rashid
[2025-02-20 17:05] VITALS: BP 98/65; PULSE 58; RESP 14; TEMP 36.8; O2SAT 96
== END 2025-02-20 17:06 ==
PROVIDERS: Emergency Medicine; Emergency Provider Emergency Medicine; PCP Family Medicine
DX: F33.9 Major depressive disorder, recurrent, unspecified (principal); R45.851 Suicidal ideations; F43.10 Post-traumatic stress disorder, unspecified; F14.10 Cocaine abuse, uncomplicated; F19.10 Other psychoactive substance abuse, uncomplicated; F11.20 Opioid dependence, uncomplicated; F17.210 Nicotine dependence, cigarettes, uncomplicated
CPT/HCPCS: 36415; 80053; 80143; 80179; 80307; 81001; 85025; 93005; 99285; S9485

== ENCOUNTER → 2025-02-20 13:47 | Outpatient (BNV) | payer MEDICAID, SELFPAY | PROVIDERS: Emergency Provider Emergency Medicine; PCP Family Medicine; Visit Provider Internal Medicine | DX: R00.1 Bradycardia, unspecified (principal) | CPT/HCPCS: 93010 ==